=== PATIENT | male | born 1975 | race Hispanic/Latino ===

== ENCOUNTER 2016-08-08 00:33 | Emergency (ER) | payer BC ==
[2016-08-08 01:25] VITALS: BP 128/86
[2016-08-08] MEDS ORDERED: TORADOL IV ONE (01:55)
== END 2016-08-08 02:00 | disposition left against medical advice (07) ==
LOC: ED 00:33
DX: R10.9 Unspecified abdominal pain (principal); Z53.21 Procedure and treatment not carried out due to patient leaving prior to being seen by health care provider

== ENCOUNTER 2016-10-19 04:08 | Emergency (ER) | payer BC ==
[2016-10-19 06:47] LABS: Bacteria,Urine 1+ /HPF (Negative); Bilirubin,Urine NEG (Negative); Blood,Urine LG (Negative); Ketones,Urine NEG (Negative); Leukocyte Esterase,Urine TR (Negative); Nitrite,Urine NEG (Negative); Protein,Urine <15 mg/dL mg/dL (Negative); Urobilinogen,Urine < 2.0 mg/dL (<2.0)
[2016-10-19] MEDS ORDERED: NACL 0.9% 1000 ML 1,000 ML IV ONE (09:30)
[2016-10-19] MEDS ORDERED: DILAUDID IV ONE ×2 (09:30→09:51)
[2016-10-19] MEDS ORDERED: ZOFRAN IV ONE (09:30)
--- NOTE | 2016-10-19 09:52 | Emergency Department Report ---
ED General Adult HPI - General Chief complaint: Abdominal Pain Stated complaint: ABD/BACK PAIN/POSS KIDNEY STONES Time Seen by Provider: 10/19/16 09:30 Source: patient Mode of arrival: Ambulatory Limitations: No Limitations - History of Present Illness Initial comments: This is a 41-year-old male. He is previously unknown to me. His urology specialist is [facility]. He has a past medical history of multiple kidney stones. The patient presents to the ER with left flank pain radiating down to the left lower quadrant. It is sharp, positive nausea, no fevers, no chills. No irritative or obstructive urinary symptoms. No chest pain or shortness of breath. Patient reports that his urine is "dark colored." Basis is consistent with previous episodes of renal colic. The pain has no exacerbating or relieving factors. -: Gradual Location: back Radiation: abdomen, flank Severity scale (0 -10): 10 Quality: aching Consistency: constant Improves with: none Worsens with: none Associated Symptoms: nausea/vomiting. denies: chest pain, cough, diaphoresis - Related Data Previous Rx's Medication Instructions Recorded Last Taken Type Cefpodoxime Proxetil 100 mg PO Q12HR #20 tablet 10/19/16 Unknown Rx Ondansetron [Zofran Odt] 4 mg PO QID PRN #20 tab.rapdis 10/19/16 Unknown Rx oxyCODONE [Roxicodone] 5 mg PO Q6HR PRN #15 tablet 10/19/16 Unknown Rx Allergies Allergy/AdvReac Type Severity Reaction Status Date / Time Neuromuscular Blockers, Allergy Rash Verified 06/26/14 01:39 Steroidal [Steroidal Neuromuscular Blockers] NSAIDS (Non-Steroidal Allergy Hives Verified 06/26/14 01:38 Anti-Inflamma ED Review of Systems ROS: Stated complaint: ABD/BACK PAIN/POSS KIDNEY STONES Other details as noted in HPI ED Past Medical Hx - Past Medical History Previous Medical History?: Yes Hx Diabetes: Yes (diet controlled) Hx Kidney Stones: Yes - Surgical History Past Surgical History?: Yes Hx Cholecystectomy: Yes Additional Surgical History: Gallbladder removed. - Social History Smoking Status: Never Smoker Substance Use Type: None - Medications Home Medications: Home Medications Medication Instructions Recorded Confirmed Last Taken Type Cefpodoxime Proxetil 100 mg PO Q12HR #20 tablet 10/19/16 Unknown Rx Ondansetron [Zofran Odt] 4 mg PO QID PRN #20 tab.rapdis 10/19/16 Unknown Rx oxyCODONE [Roxicodone] 5 mg PO Q6HR PRN #15 tablet 10/19/16 Unknown Rx ED Physical Exam - General Limitations: No Limitations General appearance: alert, in no apparent distress - Head Head exam: Present: atraumatic, normocephalic - Eye Eye exam: Present: normal appearance, EOMI. Absent: nystagmus - ENT ENT exam: Present: normal exam, normal orophraynx, mucous membranes moist, normal external ear exam - Neck Neck exam: Present: normal inspection, full ROM. Absent: tenderness, meningismus - Respiratory Respiratory exam: Present: normal lung sounds bilaterally. Absent: respiratory distress, wheezes, rales, rhonchi, stridor, chest wall tenderness, accessory muscle use, decreased breath sounds, prolonged expiratory - Cardiovascular Cardiovascular Exam: Present: regular rate, normal rhythm, normal heart sounds. Absent: bradycardia, tachycardia, irregular rhythm, systolic murmur, diastolic murmur, rubs, gallop - GI/Abdominal GI/Abdominal exam: Present: soft, normal bowel sounds. Absent: distended, tenderness, guarding, rebound, rigid, pulsatile mass - Rectal Rectal exam: Present: deferred - Extremities Exam Extremities exam: Present: normal inspection, full ROM, normal capillary refill. Absent: pedal edema, joint swelling, calf tenderness - Back Exam Back exam: Present: normal inspection, full ROM, CVA tenderness (L). Absent: tenderness, CVA tenderness (R), muscle spasm, paraspinal tenderness, vertebral tenderness - Neurological Exam Neurological exam: Present: alert, oriented X3, normal gait, other (Extraocular movements intact. Tongue midline. No facial droop. Facial sensation intact to light touch in the V1, V2, V3 distribution bilaterally. 5 and 5 strength in 4 extremities.. Sensation is intact to light touch in 4 extremities.). Absent : motor sensory deficit - Psychiatric Psychiatric exam: Present: normal affect, normal mood - Skin Skin exam: Present: warm, dry, intact, normal color. Absent: rash ED Course Vital Signs 10/19/16 10/19/16 10/19/16 04:17 09:08 09:45 Temperature 98.0 F 98.4 F Pulse Rate 102 H 91 H 96 H Respiratory 18 18 16 Rate Blood Pressure 131/88 Blood Pressure 142/87 134/97 [Left] O2 Sat by Pulse 96 100 100 Oximetry 10/19/16 10/19/16 10:06 10:50 Temperature 98.4 F Pulse Rate 90 99 H Respiratory 16 18 Rate Blood Pressure Blood Pressure 134/101 126/77 [Left] O2 Sat by Pulse 100 96 Oximetry - Reevaluation(s) Reevaluation #1: 10/19/16 11:42 Differential diagnosis: Renal colic, infected kidney stone, pyelonephritis Assessment and plan: 41-year-old male with left flank pain, urinalysis with 84 white blood cells, 58 RBCs, 1+ bacteria, left-sided CVA tenderness. I clinically suspect that the patient most likely has an acute episode of renal colic. He was treated aggressively with multiple episodes of hydromorphone and IV fluids. While in the emergency department he became flushed, but had no fever or chills. His pain improved from a "10" to a "5." The patient's declines a CT scan out of concern for radiation. The patient did improve clinically, but continued to remain flushed. I recommended a CT scan to exclude obstructing stone, and possible concomitant urinary tract infection. The patient is now refusing a CT scan. The patient is going to sign out AGAINST MEDICAL ADVICE. The patient is alert and oriented 3. He exhibits decision-making capacity. He is free from distracting injury. The risks of leaving including , disability, paralysis, loss of quality of life are reviewed with the patient. He verbalizes understanding. He is instructed that he can return to the ER right away if when he changes his mind, or to follow up as soon as possible with his urology specialist. The conversation was witnessed by nurse Jen Antonio The patient is going to be loaded empirically with ceftriaxone, and discharged for cefpodoxime. ED Medical Decision Making - Lab Data Result diagrams: 10/19/16 10:04 10/19/16 10:04 Vital Signs 10/19/16 10/19/16 10/19/16: 09:08 09:45 Temperature 98.0 F 98.4 F Pulse Rate 102 H 91 H 96 H Respiratory 18 18 16 Rate Blood Pressure 131/88 Blood Pressure 142/87 134/97 [Left] O2 Sat by Pulse 96 100 100 Oximetry 10/19/16 10/19/16 10:06 10:50 Temperature 98.4 F Pulse Rate 90 99 H Respiratory 16 18 Rate Blood Pressure Blood Pressure 134/101 126/77 [Left] O2 Sat by Pulse 100 96 Oximetry Lab Results 10/19/16 10/19/16 10/19/16 Range/Units 06:10 10:04 10:04 WBC 7.2 (4.5-11.0) K/mm3 RBC 4.91 (3.65-5.03) M/mm3 Hgb 14.8 (11.8-15.2) gm/dl Hct 43.2 (35.5-45.6) % MCV 88 (84-94) fl MCH 30 (28-32) pg MCHC 34 (32-34) % RDW 13.1 L (13.2-15.2) % Plt Count 246 (140-440) K/mm3 Sodium 135 L (137-145) mmol/L Potassium 3.8 (3.6-5.0) mmol/L Chloride 101.1 (98-107) mmol/L Carbon Dioxide 20 L (22-30) mmol/L Anion Gap 18 mmol/L BUN 13 (9-20) mg/dL Creatinine 0.6 L (0.8-1.5) mg/dL Estimated GFR > 60 ml/min BUN/Creatinine Ratio 21.66 % Glucose 238 H (75-100) mg/dL Calcium 8.6 (8.4-10.2) mg/dL Total Creatine Kinase 109 (55-170) units/L Urine Color Straw (Yellow) Urine Turbidity Clear (Clear) Urine pH 5.0 (5.0-7.0) Ur Specific [place] 1.024 (1.003-1.030) Urine Protein <15 mg/dl (Negative) mg/dL Urine Glucose (UA) >=500 (Negative) mg/dL Urine Ketones Neg (Negative) mg/dL Urine Blood Lg (Negative) Urine Nitrite Neg (Negative) Urine Bilirubin Neg (Negative) Urine Urobilinogen < 2.0 (<2.0) mg/dL Ur Leukocyte Esterase Tr (Negative) Urine WBC (Auto) 84.0 H (0.0-6.0) /HPF Urine RBC (Auto) 58.0 (0.0-6.0) /HPF U Epithel Cells (Auto) < 1.0 (0-13.0) /HPF Urine Bacteria (Auto) 1+ (Negative) /HPF - Radiology Data Radiology results: report reviewed, image reviewed renal renal ultrasound demonstrates no acute disease Critical care attestation.: If time is entered above; I have spent that time in minutes in the direct care of this critically ill patient, excluding procedure time. ED Disposition Clinical Impression: Flank pain Disposition: LEFT AGAINST MEDICAL ADVICE Is pt being admited?: No Does the pt Need Aspirin: No Condition: Stable Instructions: Renal Colic (ED) Additional Instructions: As we discussed, you have left the hospital/emergency room AGAINST MEDICAL ADVICE. By leaving, you risked , disability, paralysis, permanent loss of quality of life. The ER is open 24 hours a day, 7 days a week. It never closes. Please return to the emergency room right away if and when you change your mind. If you decide not to return to the emergency room, please follow-up with the listed physician referrals as soon as possible. Take the pain medication, nausea medication, antibiotic therapies as directed. Cultures were sent today, results to be available next 3-5 days. Have your urologist processed her primary care doctor contact the medical records department to obtain culture results. Referrals: AMARILIS PAUL MD [Primary Care Provider] - 3-5 Days GABRIELA PATTERSON MD [Staff Physician] - 3-5 Days
[2016-10-19 10:19] LABS: Hematocrit 43.2 % (35.5-45.6); Hemoglobin 14.8 gm/dl (11.8-15.2); Mean Corpuscular HGB Conc 34 % (32-34); Mean Corpuscular Hemoglobin 30 pg (28-32); Mean Corpuscular Volume 88 fl (84-94); Platelet Count 246 K/mm3 (140-440); Red Blood Count 4.91 M/mm3 (3.65-5.03); Red Cell Distribution Width 13.1 % (13.2-15.2); White Blood Count 7.2 K/mm3 (4.5-11.0)
[2016-10-19 10:43] LABS: Anion Gap 18 mmol/L; BUN/Creatinine Ratio 21.66; Blood Urea Nitrogen 13 mg/dL (9-20); Calcium 8.6 mg/dL (8.4-10.2); Carbon Dioxide 20 mmol/L (22-30); Chloride 101.1 mmol/L (98-107); Creatine Kinase 109 units/L (55-170); Glucose 238 mg/dL (75-100); Potassium 3.8 mmol/L (3.6-5.0); Sodium 135 mmol/L (137-145)
--- NOTE | 2016-10-19 11:02 | Ultrasound Report ---
Renal ultrasound. History: Left flank pain. Findings: The right kidney measures 12.0 x 5.5 x 5.6 cm. The left kidney measures 11.6 x 5.8 x 6.3 cm. There is no evidence of mass or hydronephrosis. The cortical thickness is normal. Images of the urinary bladder reveal no significant findings. Impression: Normal study.
[2016-10-19] MEDS ORDERED: MORPHINE IV ONE (11:40)
[2016-10-19] MEDS ORDERED: ROCEPHIN/NS 1 GM/50 ML 1 GM/50 ML BAG IV ONE (11:40)
[2016-10-19 12:03] VITALS: BP 134/77
== END 2016-10-19 12:31 | disposition left against medical advice (07) ==
LOC: ED 04:08
DX: R10.9 Unspecified abdominal pain (principal); E11.9 Type 2 diabetes mellitus without complications; Z90.49 Acquired absence of other specified parts of digestive tract; Z88.6 Allergy status to analgesic agent
CPT/HCPCS: 36415; 76770; 80048; 81001; 82550; 85027; 87086; 96361; 96365; 96375; 99284; J0696; J1170; J2270; J2405; J7030

== ENCOUNTER 2016-11-06 01:30 | Emergency (ER) | payer BC ==
[2016-11-06 01:39] VITALS: BP 136/95
== END 2016-11-06 02:58 | disposition left against medical advice (07) ==
LOC: ED 01:30
DX: R10.9 Unspecified abdominal pain (principal); Z53.21 Procedure and treatment not carried out due to patient leaving prior to being seen by health care provider

== ENCOUNTER 2016-12-14 00:44 | Emergency (ER) | payer BC ==
[2016-12-14 01:27] LABS: Bacteria,Urine 1+ /HPF (Negative); Bilirubin,Urine NEG (Negative); Blood,Urine LG (Negative); Ketones,Urine NEG (Negative); Leukocyte Esterase,Urine MOD (Negative); Nitrite,Urine NEG (Negative); Protein,Urine <15 mg/dL mg/dL (Negative); Urobilinogen,Urine < 2.0 mg/dL (<2.0)
[2016-12-14] MEDS ORDERED: NACL 0.9% 1000 ML 1,000 ML IV ONE (09:28)
[2016-12-14] MEDS ORDERED: MORPHINE IV ONE (09:29)
[2016-12-14] MEDS ORDERED: DILAUDID IV ONE ×3 (09:35→12:52)
[2016-12-14] MEDS ORDERED: ZOFRAN ONE (10:18)
--- NOTE | 2016-12-14 10:30 | Ultrasound Report ---
ULTRASOUND RENAL INDICATION: Pain. COMPARISON: 10/19/2016. FINDINGS: Renal sonography demonstrates normal renal cortical echogenicity. Grossly preserved renal contours. No hydronephrosis. Echogenic imaged liver. RIGHT KIDNEY measures 12.3 x 6 x 6.2 cm with cortical thickness of 1.6 cm. Approximately 1.5 x 1 cm cortical cyst superiorly, image 13. LEFT KIDNEY estimated at 12 x 6 x 6.1 cm with cortical thickness of 2 cm. URINARY BLADDER suboptimally distended and assessed, though grossly unremarkable in so far seen. CONCLUSION: No acute renal sonographic abnormality with small right renal cyst and fatty liver, as described in this patient with tiny 1-2 mm nonobstructing bilateral renal calculi known by prior CT. Thank you for the opportunity to participate in this patient's care.
--- NOTE | 2016-12-14 11:27 | Emergency Department Report ---
ED General Adult HPI - General Chief complaint: Abdominal Pain Stated complaint: POSS KIDNEY STONE Time Seen by Provider: 12/14/16 11:10 Source: patient, RN notes reviewed, old records reviewed Mode of arrival: Ambulatory Limitations: No Limitations - History of Present Illness Initial comments: This is a 42-year-old male. I have evaluated him in the past. Primary care Dr.: Dr. Dawson Urology: [facility] Past medical history: Nephrolithiasis, "kidney cysts." The patient presented to the ER today with his typical complaint of renal colic. It started last night. It started in the flank, and radiated down to his right lower quadrant. The patient describes bloody urine. There is no testicular pain. Patient denies fevers and chills. Denies irritated obstructive urinary symptoms. The patient initially reports that his pain was an 8 out of 10. The patient is given multiple doses of hydromorphone in the ER. His pain is now 3 out of 10. He had nausea, this has since resolved. There is no vomiting. His urinalysis was equivocal for urinary tract infection, occult was negative in September. I had an extensive discussion with the patient. Given his urinalysis, and his symptoms, he agreed to a noncontrast CT scan of the abdomen and pelvis to exclude significant obstructing stone. -: Gradual Location: abdomen, pelvis Severity scale (0 -10): 10 Consistency: constant Improves with: medication Worsens with: none Associated Symptoms: nausea/vomiting. denies: fever/chills, weakness - Related Data Previous Rx's Medication Instructions Recorded Last Taken Type Cefpodoxime Proxetil 100 mg PO Q12HR #20 tablet 10/19/16 Unknown Rx Ondansetron [Zofran Odt] 4 mg PO QID PRN #20 tab.rapdis 10/19/16 Unknown Rx oxyCODONE [Roxicodone] 5 mg PO Q6HR PRN #15 tablet 10/19/16 Unknown Rx Nitrofurantoin [place]/M-Cryst 100 mg PO Q12HR #14 capsule 12/14/16 Unknown Rx [Macrobid CAP] Ondansetron [Zofran Odt] 4 mg PO QID PRN #20 tab.rapdis 12/14/16 Unknown Rx oxyCODONE [Roxicodone] 5 mg PO Q6HR PRN #15 tablet 12/14/16 Unknown Rx Allergies Allergy/AdvReac Type Severity Reaction Status Date / Time Neuromuscular Blockers, Allergy Rash Verified 06/26/14 01:39 Steroidal [Steroidal Neuromuscular Blockers] NSAIDS (Non-Steroidal Allergy Hives Verified 06/26/14 01:38 Anti-Inflamma prednisone Allergy Unknown Verified 11/06/16 01:39 steriods Allergy Unknown Uncoded 11/06/16 01:40 ED Review of Systems ROS: Stated complaint: POSS KIDNEY STONE Other details as noted in HPI Constitutional: denies: fever, malaise Eyes: denies: vision change ENT: denies: epistaxis Respiratory: denies: cough Cardiovascular: denies: chest pain Gastrointestinal: abdominal pain, nausea Genitourinary: hematuria. denies: urgency, dysuria, frequency, testicular pain , testicular mass Musculoskeletal: back pain Skin: denies: lesions Neurological: denies: headache Psychiatric: anxiety. denies: as per HPI ED Past Medical Hx - Past Medical History Previous Medical History?: Yes Hx Diabetes: Yes (diet controlled) Hx Kidney Stones: Yes - Surgical History Past Surgical History?: Yes Hx Cholecystectomy: Yes Additional Surgical History: Gallbladder removed. - Social History Smoking Status: Never Smoker Substance Use Type: None - Medications Home Medications: Home Medications Medication Instructions Recorded Confirmed Last Taken Type Cefpodoxime Proxetil 100 mg PO Q12HR #20 tablet 10/19/16 Unknown Rx Ondansetron [Zofran Odt] 4 mg PO QID PRN #20 tab.rapdis 10/19/16 Unknown Rx oxyCODONE [Roxicodone] 5 mg PO Q6HR PRN #15 tablet 10/19/16 Unknown Rx Nitrofurantoin [place]/M-Cryst 100 mg PO Q12HR #14 capsule 12/14/16 Unknown Rx [Macrobid CAP] Ondansetron [Zofran Odt] 4 mg PO QID PRN #20 tab.rapdis 12/14/16 Unknown Rx oxyCODONE [Roxicodone] 5 mg PO Q6HR PRN #15 tablet 12/14/16 Unknown Rx ED Physical Exam - General Limitations: No Limitations General appearance: alert, in no apparent distress - Head Head exam: Present: atraumatic, normocephalic - Eye Eye exam: Present: normal appearance, EOMI. Absent: nystagmus - ENT ENT exam: Present: normal exam, normal orophraynx, mucous membranes moist, normal external ear exam - Neck Neck exam: Present: normal inspection, full ROM. Absent: tenderness, meningismus - Respiratory Respiratory exam: Present: normal lung sounds bilaterally. Absent: respiratory distress, wheezes, rales, rhonchi, stridor, chest wall tenderness, accessory muscle use, decreased breath sounds, prolonged expiratory - Cardiovascular Cardiovascular Exam: Present: regular rate, normal rhythm, normal heart sounds. Absent: bradycardia, tachycardia, systolic murmur, diastolic murmur, rubs, gallop - GI/Abdominal GI/Abdominal exam: Present: soft, normal bowel sounds. Absent: distended, tenderness, guarding, rebound, rigid, pulsatile mass - Rectal Rectal exam: Present: deferred - exam: Present: other (I recommended the testicular examination to the patient , however he refused) - Extremities Exam Extremities exam: Present: normal inspection, full ROM, normal capillary refill. Absent: tenderness, pedal edema, joint swelling, calf tenderness - Back Exam Back exam: Present: normal inspection, full ROM. Absent: tenderness, CVA tenderness (R), CVA tenderness (L), muscle spasm, paraspinal tenderness, vertebral tenderness - Neurological Exam Neurological exam: Present: alert, oriented X3, normal gait, other (Extraocular movements intact. Tongue midline. No facial droop. Facial sensation intact to light touch in the V1, V2, V3 distribution bilaterally. 5 and 5 strength in 4 extremities.. Sensation is intact to light touch in 4 extremities.). Absent : motor sensory deficit - Psychiatric Psychiatric exam: Present: normal affect, normal mood - Skin Skin exam: Present: warm, dry, intact, normal color. Absent: rash ED Course Vital Signs 12/14/16 12/14/16 12/14/16 00:49 10:00 10:38 Temperature 98.7 F Pulse Rate 107 H 89 Respiratory 18 20 20 Rate Blood Pressure 158/99 Blood Pressure 148/89 [Right] O2 Sat by Pulse 98 100 Oximetry 12/14/16 14:11 Temperature Pulse Rate 82 Respiratory 16 Rate Blood Pressure Blood Pressure 138/62 [Right] O2 Sat by Pulse 99 Oximetry - Reevaluation(s) Reevaluation #1: 12/14/16 12:41 Differential diagnosis: Renal colic, urinary tract infection Assessment and plan: 41-year-old male with typical episode of renal colic. He is afebrile with slight hypertension but otherwise reassuring vital signs. He declined a testicular examination. His urinalysis today demonstrates leukocytes, large blood, 1+ bacteria with 25 RBCs. He denies irritative and obstructive urinary symptoms. He had a similar presentation back in September when I previously examined him. At that time, a culture was negative. The patient is agreeable to a CT scan at this time to exclude obstructing stone. He is alert and oriented 3, and we are able to make a shared decision while discussing the risks, and benefits. CT scan has been performed, interpretation is pending. Reevaluation #2: 12/14/16 13:46 Patient requesting to go. CT scan demonstrates bilateral nephrolithiasis within the calyeces However, then there were no ureteral stones. The patient is afebrile, tolerating liquid feeds, and requesting to leave. He will be discharged with pain medication, nausea medication, antibiotics. He is instructed to follow up with outpatient urology. Return precautions are reviewed. Given lack of CVA tenderness, lack of fever, benign physical examination, I don't believe the patient's clinical presentation is consistent with pyelonephritis at this time. There is no right lower quadrant tenderness at this time. The appendix is normal. The patient had a similar presentation in September. Therefore I think appendicitis is very unlikely. 12/14/16 15:05 ED Medical Decision Making - Lab Data Result diagrams: 12/14/16 11:37 Vital Signs 12/14/16 12/14/16 12/14/16 00:49 10:00 10:38 Temperature 98.7 F Pulse Rate 107 H 89 Respiratory 18 20 20 Rate Blood Pressure 158/99 Blood Pressure 148/89 [Right] O2 Sat by Pulse 98 100 Oximetry Lab Results 12/14/16 12/14/16 12/14/16 Range/Units 01:06 11:37 11:37 Sodium 137 (137-145) mmol/L Potassium 3.9 (3.6-5.0) mmol/L Chloride 100.4 (98-107) mmol/L Carbon Dioxide 21 L (22-30) mmol/L Anion Gap 20 mmol/L BUN 12 (9-20) mg/dL Creatinine 0.8 (0.8-1.5) mg/dL Estimated GFR > 60 ml/min BUN/Creatinine Ratio 15.00 % Glucose 250 H (75-100) mg/dL Calcium 8.4 (8.4-10.2) mg/dL Total Creatine Kinase 121 (55-170) units/L Urine Color Red (Yellow) Urine Turbidity Clear (Clear) Urine pH 5.0 (5.0-7.0) Ur Specific [place] 1.017 (1.003-1.030) Urine Protein <15 mg/dl (Negative) mg/dL Urine Glucose (UA) >=500 (Negative) mg/dL Urine Ketones Neg (Negative) mg/dL Urine Blood Lg (Negative) Urine Nitrite Neg (Negative) Urine Bilirubin Neg (Negative) Urine Urobilinogen < 2.0 (<2.0) mg/dL Ur Leukocyte Esterase Mod (Negative) Urine WBC (Auto) 89.0 H (0.0-6.0) /HPF Urine RBC (Auto) 25.0 (0.0-6.0) /HPF U Epithel Cells (Auto) 4.0 (0-13.0) /HPF Urine Bacteria (Auto) 1+ (Negative) /HPF - Radiology Data Radiology results: report reviewed, image reviewed Noncontrast CT scan of the abdomen and pelvis: Kidney ultrasound: No acute renal sonographic abnormality, small right renal cysts which are chronic as per patient tiny 1-2 mm nonobstructing bilateral renal calculi, seen on prior CT. Noncontrast CT scan of the abdomen/pelvis: There is a 4 mm calyceal stone noted in the right mid kidney. This is new since previous examination. There is a 2 mm calyceal stone noted in the inferior pole of the right kidney which is unchanged. No ureteral stones or hydronephrosis noted. Normal cardiac size. Critical care attestation.: If time is entered above; I have spent that time in minutes in the direct care of this critically ill patient, excluding procedure time. ED Disposition Clinical Impression: Flank pain Disposition: DC-01 TO HOME OR SELFCARE Is pt being admited?: No Does the pt Need Aspirin: No Condition: Stable Instructions: Flank Pain (ED) Additional Instructions: The pain medication, nausea medication, antibiotics as directed. Cultures were sent today. Results will be available in the next 3-5 days. Have a primary care doctor or urology specialist contact the medical records department to obtain culture results. Return to the ER right away with new pain, worsened pain, migration of pain, intractable nausea or vomiting, inability to tolerate liquid feeds, confusion, change in mental status, projectile vomiting. Prescriptions: Nitrofurantoin [place]/M-Cryst [Macrobid CAP] 100 mg PO Q12HR #14 capsule Ondansetron [Zofran Odt] 4 mg PO QID PRN #20 tab.rapdis PRN Reason: Nausea oxyCODONE [Roxicodone] 5 mg PO Q6HR PRN #15 tablet PRN Reason: Pain Referrals: JIAN DAWSON MD [Primary Care Provider] - 3-5 Days GABRIELA PATTERSON MD [Staff Physician] - 3-5 Days
[2016-12-14 12:11] LABS: Anion Gap 20 mmol/L; Blood Urea Nitrogen 12 mg/dL (9-20); Calcium 8.4 mg/dL (8.4-10.2); Carbon Dioxide 21 mmol/L (22-30); Chloride 100.4 mmol/L (98-107); Glucose 250 mg/dL (75-100); Potassium 3.9 mmol/L (3.6-5.0); Sodium 137 mmol/L (137-145)
--- NOTE | 2016-12-14 12:56 | Cat Scan Report ---
CT OF THE ABDOMEN AND PELVIS WITHOUT CONTRAST HISTORY: Right flank pain. TECHNIQUE: Helical CT without contrast. Sagittal and coronal reformatted images. FINDINGS: Compared to 06/26/14. Both kidneys are normal size, contour and position. A 4 mm calyceal stone is identified in the mid right kidney which is new since the previous exam. A 2 mm calyceal stone is identified at the inferior pole the right kidney which is unchanged. A 2 mm calyceal stone in the mid left kidney is unchanged. No ureteral stones or hydronephrosis. No cystic disease or obvious renal mass. The bladder is collapsed and unremarkable. There is mild diffuse fatty change in the liver. No liver mass or surface nodularity. The gallbladder has been surgically removed. Normal pancreas. The spleen, adrenal glands, aorta, bowel loops and appendix are within normal limits. No evidence for ascites, adenopathy, inflammatory changes or free air. Normal heart size. Clear lung bases. No bony abnormality. IMPRESSION: Bilateral nephrolithiasis as outlined above. No ureteral stones or hydronephrosis identified.
[2016-12-14 14:12] VITALS: BP 138/62
== END 2016-12-14 14:05 | disposition home or self-care (01) ==
LOC: ED 00:44
DX: R10.31 Right lower quadrant pain (principal); E11.9 Type 2 diabetes mellitus without complications; N23 Unspecified renal colic; Z88.8 Allergy status to other drugs, medicaments and biological substances; Z88.6 Allergy status to analgesic agent
CPT/HCPCS: 36415; 74176; 76770; 80048; 81001; 82550; 87086; 96361; 96374; 96376; 99284; J1170; J2405; J7030

== ENCOUNTER 2017-02-25 22:23 | Emergency (ER) | payer BC ==
[2017-02-25 23:04] VITALS: BP 132/76
[2017-02-26] MEDS ORDERED: TORADOL IM ONE (00:53)
[2017-02-26] MEDS ORDERED: DILAUDID IM ONE (00:54)
[2017-02-26 01:09] LABS: Bilirubin,Urine NEG (Negative); Blood,Urine LG (Negative); Ketones,Urine NEG (Negative); Leukocyte Esterase,Urine MOD (Negative); Nitrite,Urine NEG (Negative); Protein,Urine <15 mg/dL mg/dL (Negative)
--- NOTE | 2017-02-26 02:45 | Emergency Department Report ---
ED General Adult HPI - General Chief complaint: Abdominal Pain Stated complaint: LT SIDE PAIN Time Seen by Provider: 02/26/17 00:48 Source: patient Mode of arrival: Ambulatory Limitations: No Limitations - History of Present Illness Initial comments: Patient is a 41-year-old male past history of renal colic who presents with severe left flank pain that has been going on for the last 2 hours. Patient states that the pain is a 10 out of 10. Radiates to his groin and he states this is the type of pain he has when he has a kidney stone. He is pacing around in the room. He also states that he has some nausea and vomiting. The vomitus nonbloody nonbilious. He denies having any fevers. - Related Data Previous Rx's Medication Instructions Recorded Last Taken Type Cefpodoxime Proxetil 100 mg PO Q12HR #20 tablet 10/19/16 Unknown Rx Ondansetron [Zofran Odt] 4 mg PO QID PRN #20 tab.rapdis 10/19/16 Unknown Rx oxyCODONE [Roxicodone] 5 mg PO Q6HR PRN #15 tablet 10/19/16 Unknown Rx Nitrofurantoin [place]/M-Cryst 100 mg PO Q12HR #14 capsule 12/14/16 Unknown Rx [Macrobid CAP] Ondansetron [Zofran Odt] 4 mg PO QID PRN #20 tab.rapdis 12/14/16 Unknown Rx oxyCODONE [Roxicodone] 5 mg PO Q6HR PRN #15 tablet 12/14/16 Unknown Rx Allergies Allergy/AdvReac Type Severity Reaction Status Date / Time Neuromuscular Blockers, Allergy Rash Verified 06/26/14 01:39 Steroidal [Steroidal Neuromuscular Blockers] NSAIDS (Non-Steroidal Allergy Hives Verified 06/26/14 01:38 Anti-Inflamma prednisone Allergy Unknown Verified 11/06/16 01:39 steriods Allergy Unknown Uncoded 11/06/16 01:40 ED Review of Systems ROS: Stated complaint: LT SIDE PAIN Other details as noted in HPI Constitutional: denies: chills, fever Eyes: denies: eye pain, eye discharge, vision change ENT: denies: ear pain, throat pain Respiratory: denies: cough, shortness of breath, wheezing Cardiovascular: denies: chest pain, palpitations Endocrine: no symptoms reported Gastrointestinal: nausea, vomiting. denies: abdominal pain, diarrhea Genitourinary: denies: urgency, dysuria Musculoskeletal: other (flank pain). denies: back pain, joint swelling, arthralgia Skin: denies: rash, lesions Neurological: denies: headache, weakness, paresthesias Psychiatric: denies: anxiety, depression Hematological/Lymphatic: denies: easy bleeding, easy bruising ED Past Medical Hx - Past Medical History Previous Medical History?: Yes Hx Diabetes: Yes (diet controlled) Hx Kidney Stones: Yes - Surgical History Hx Cholecystectomy: Yes Additional Surgical History: Gallbladder removed. - Social History Smoking Status: Never Smoker - Medications Home Medications: Home Medications Medication Instructions Recorded Confirmed Last Taken Type Cefpodoxime Proxetil 100 mg PO Q12HR #20 tablet 10/19/16 Unknown Rx Ondansetron [Zofran Odt] 4 mg PO QID PRN #20 tab.rapdis 10/19/16 Unknown Rx oxyCODONE [Roxicodone] 5 mg PO Q6HR PRN #15 tablet 10/19/16 Unknown Rx Nitrofurantoin [place]/M-Cryst 100 mg PO Q12HR #14 capsule 12/14/16 Unknown Rx [Macrobid CAP] Ondansetron [Zofran Odt] 4 mg PO QID PRN #20 tab.rapdis 12/14/16 Unknown Rx oxyCODONE [Roxicodone] 5 mg PO Q6HR PRN #15 tablet 12/14/16 Unknown Rx ED Physical Exam - General Limitations: No Limitations General appearance: alert, other (standing around in pain) - Head Head exam: Present: atraumatic, normocephalic - Eye Eye exam: Present: normal appearance - ENT ENT exam: Present: mucous membranes moist - Neck Neck exam: Present: normal inspection - Respiratory Respiratory exam: Present: normal lung sounds bilaterally. Absent: respiratory distress - Cardiovascular Cardiovascular Exam: Present: regular rate, normal rhythm. Absent: systolic murmur, diastolic murmur, rubs, gallop - GI/Abdominal GI/Abdominal exam: Present: soft, normal bowel sounds - Rectal Rectal exam: Present: deferred - Extremities Exam Extremities exam: Present: normal inspection - Back Exam Back exam: Present: normal inspection, CVA tenderness (L) - Neurological Exam Neurological exam: Present: alert, oriented X3 - Psychiatric Psychiatric exam: Present: normal affect, normal mood - Skin Skin exam: Present: warm, dry, intact, normal color. Absent: rash ED Course Vital Signs 02/25/17 22:42 Temperature 98.4 F Pulse Rate 96 H Respiratory 20 Rate Blood Pressure 132/76 O2 Sat by Pulse 96 Oximetry - Reevaluation(s) Reevaluation #1: 02/26/17 02:48 Patient eloped from the emergency department patient has not gotten his CT scan. He left before being reassessed. ED Medical Decision Making - Lab Data Lab Results 02/26/17 Range/Units 00:48 Urine Color Straw (Yellow) Urine Turbidity Clear (Clear) Urine pH 7.0 (5.0-7.0) Ur Specific [place] 1.028 (1.003-1.030) Urine Protein <15 mg/dl (Negative) mg/dL Urine Glucose (UA) >=500 (Negative) mg/dL Urine Ketones Neg (Negative) mg/dL Urine Blood Lg (Negative) Urine Nitrite Neg (Negative) Urine Bilirubin Neg (Negative) Urine Urobilinogen 2.0 (<2.0) mg/dL Ur Leukocyte Esterase Mod (Negative) Urine WBC (Auto) 27.0 H (0.0-6.0) /HPF Urine RBC (Auto) 28.0 (0.0-6.0) /HPF U Epithel Cells (Auto) 1.0 (0-13.0) /HPF - Radiology Data Radiology results: pending - Medical Decision Making Chief medical diagnosis: Left kidney stone Differential medical diagnosis: Urinary tract infection, pyelonephritis I will get CT noncontrast IM analgesic pain medication, urinalysis and antiemetic medication medication Patient is refusing IV sticks at this time and he is upset about his weight in the emergency department. Critical care attestation.: If time is entered above; I have spent that time in minutes in the direct care of this critically ill patient, excluding procedure time. ED Disposition Clinical Impression: Left flank pain, Renal colic on left side Disposition: Z- ELOPED Is pt being admited?: No Does the pt Need Aspirin: No Condition: Undetermined Referrals: PRIMARY CARE, [Primary Care Provider] - 3-5 Days
== END 2017-02-26 01:38 | disposition left against medical advice (07) ==
LOC: ED 22:23
DX: N23 Unspecified renal colic (principal); E11.9 Type 2 diabetes mellitus without complications; Z88.8 Allergy status to other drugs, medicaments and biological substances
CPT/HCPCS: 81001; 99283

== ENCOUNTER 2017-05-15 22:55 | Emergency (ER) | payer BC | END 2017-05-16 03:34 | disposition left against medical advice (07) | LOC: ED 22:55 | DX: N20.0 Calculus of kidney (principal); Z53.21 Procedure and treatment not carried out due to patient leaving prior to being seen by health care provider ==

== ENCOUNTER 2017-06-12 14:39 | Emergency (ER) | payer BC | END 2017-06-12 14:45 | disposition left against medical advice (07) | LOC: ED 14:39 | DX: R10.9 Unspecified abdominal pain (principal); Z53.21 Procedure and treatment not carried out due to patient leaving prior to being seen by health care provider ==

== ENCOUNTER 2017-10-05 21:43 | Emergency (ER) | payer BC ==
[2017-10-05] MEDS ORDERED: ZOFRAN IV ONE (23:26)
[2017-10-05] MEDS ORDERED: MORPHINE IV ONE (23:26)
[2017-10-05] MEDS ORDERED: NACL 0.9% 1000 ML 1,000 ML IV ONE (23:26)
[2017-10-06 00:06] VITALS: BP 133/86
[2017-10-06 00:07] LABS: Basophils % (Auto) 0.2 % (0.0-1.8); Eosinophils # (Auto) 0.3 K/mm3 (0.0-0.4); Eosinophils % (Auto) 3.6 % (0.0-4.3); Hematocrit 43.5 % (35.5-45.6); Hemoglobin 15.1 gm/dl (11.8-15.2); Lymphocytes # (Auto) 3.1 K/mm3 (1.2-5.4); Lymphocytes % (Auto) 32.4 % (13.4-35.0); Mean Corpuscular HGB Conc 35 % (32-34); Mean Corpuscular Hemoglobin 31 pg (28-32); Mean Corpuscular Volume 88 fl (84-94); Monocytes # (Auto) 0.6 K/mm3 (0.0-0.8); Monocytes % (Auto) 6.7 % (0.0-7.3); Platelet Count 282 K/mm3 (140-440); Red Blood Count 4.96 M/mm3 (3.65-5.03); Red Cell Distribution Width 13.3 % (13.2-15.2)
[2017-10-06 00:25] LABS: Alanine Aminotransferase 37 units/L (7-56); Albumin 3.9 g/dL (3.9-5); BUN/Creatinine Ratio 16; Blood Urea Nitrogen 13 mg/dL (9-20); Calcium 8.7 mg/dL (8.4-10.2); Hemolysis Index 11
[2017-10-06 00:51] LABS: Bilirubin,Urine NEG (Negative); Blood,Urine MOD (Negative); Color,Urine Yellow (Yellow); Mucus,Urine FEW /HPF; Protein,Urine <15 mg/dL mg/dL (Negative); Urobilinogen,Urine < 2.0 mg/dL (<2.0)
--- NOTE | 2017-10-06 01:24 | Emergency Department Report ---
ED Abdominal Pain HPI - General Chief Complaint: Back Pain/Injury Stated Complaint: LT SIDE PAIN Time Seen by Provider: 10/05/17 23:14 Source: patient Mode of arrival: Ambulatory Limitations: No Limitations - History of Present Illness Initial Comments: Patient is a 42-year-old male with a past medical history of multiple kidney stones who states 2-3 hours ago he started having some left-sided abdominal pain and flank pain. Patient states his urine has been dark for the past several hours and has been nauseous as well. Patient states the pain is 10 out of 10 in severity. There is radiation of his pain to the groin. Patient states he usually has kidney stones that pass and is able to tough it out but states he was hurting pretty bad this evening. Severity scale (0 -10): 9 Quality: stabbing Consistency: constant Associated Symptoms: nausea. denies: vomiting, diarrhea, fever, chills, constipation, dysuria, hematemesis, hematochezia, melena, hematuria, anorexia, syncope - Related Data Previous Rx's Medication Instructions Recorded Last Taken Type Cefpodoxime Proxetil 100 mg PO Q12HR #20 tablet 10/19/16 Unknown Rx Ondansetron [Zofran Odt] 4 mg PO QID PRN #20 tab.rapdis 10/19/16 Unknown Rx oxyCODONE [Roxicodone] 5 mg PO Q6HR PRN #15 tablet 10/19/16 Unknown Rx Nitrofurantoin [place]/M-Cryst 100 mg PO Q12HR #14 capsule 12/14/16 Unknown Rx [Macrobid CAP] Ondansetron [Zofran Odt] 4 mg PO QID PRN #20 tab.rapdis 12/14/16 Unknown Rx oxyCODONE [Roxicodone] 5 mg PO Q6HR PRN #15 tablet 12/14/16 Unknown Rx Allergies Allergy/AdvReac Type Severity Reaction Status Date / Time Neuromuscular Blockers, Allergy Rash Verified 06/26/14 01:39 Steroidal [Steroidal Neuromuscular Blockers] NSAIDS (Non-Steroidal Allergy Hives Verified 06/26/14 01:38 Anti-Inflamma prednisone Allergy Unknown Verified 11/06/16 01:39 steriods Allergy Unknown Uncoded 11/06/16 01:40 ED Review of Systems ROS: Stated complaint: LT SIDE PAIN Other details as noted in HPI Comment: All other systems reviewed and negative ED Past Medical Hx - Past Medical History Previous Medical History?: Yes Hx Diabetes: Yes (diet controlled) Hx Kidney Stones: Yes - Surgical History Past Surgical History?: Yes Hx Cholecystectomy: Yes Additional Surgical History: Gallbladder removed. - Social History Smoking Status: Former Smoker Substance Use Type: None - Medications Home Medications: Home Medications Medication Instructions Recorded Confirmed Last Taken Type Cefpodoxime Proxetil 100 mg PO Q12HR #20 tablet 10/19/16 Unknown Rx Ondansetron [Zofran Odt] 4 mg PO QID PRN #20 tab.rapdis 10/19/16 Unknown Rx oxyCODONE [Roxicodone] 5 mg PO Q6HR PRN #15 tablet 10/19/16 Unknown Rx Nitrofurantoin [place]/M-Cryst 100 mg PO Q12HR #14 capsule 12/14/16 Unknown Rx [Macrobid CAP] Ondansetron [Zofran Odt] 4 mg PO QID PRN #20 tab.rapdis 12/14/16 Unknown Rx oxyCODONE [Roxicodone] 5 mg PO Q6HR PRN #15 tablet 12/14/16 Unknown Rx ED Physical Exam - General Limitations: No Limitations General appearance: alert, anxious - Head Head exam: Present: atraumatic, normocephalic - Eye Eye exam: Present: normal appearance - ENT ENT exam: Present: mucous membranes moist - Neck Neck exam: Present: normal inspection - Respiratory Respiratory exam: Present: normal lung sounds bilaterally. Absent: respiratory distress - Cardiovascular Cardiovascular Exam: Present: regular rate, normal rhythm. Absent: systolic murmur, diastolic murmur, rubs, gallop - GI/Abdominal GI/Abdominal exam: Present: soft, normal bowel sounds - Rectal Rectal exam: Present: deferred - Extremities Exam Extremities exam: Present: normal inspection - Back Exam Back exam: Present: normal inspection - Neurological Exam Neurological exam: Present: alert, oriented X3 - Psychiatric Psychiatric exam: Present: normal affect, normal mood - Skin Skin exam: Present: warm, dry, intact, normal color. Absent: rash ED Course Vital Signs 10/06/17 10/06/17 00:05 00:12 Temperature 98 F Pulse Rate 103 H Respiratory 20 20 Rate Blood Pressure 133/86 [Left] ED Medical Decision Making - Lab Data Result diagrams: 10/05/17 23:50 10/05/17 23:50 Lab Results 10/05/17 10/05/17 10/05/17 Range/Units 23:50 23:50 Unknown WBC 9.5 (4.5-11.0) K/mm3 RBC 4.96 (3.65-5.03) M/mm3 Hgb 15.1 (11.8-15.2) gm/dl Hct 43.5 (35.5-45.6) % MCV 88 (84-94) fl MCH 31 (28-32) pg MCHC 35 H (32-34) % RDW 13.3 (13.2-15.2) % Plt Count 282 (140-440) K/mm3 Lymph % (Auto) 32.4 (13.4-35.0) % [place] % (Auto) 6.7 (0.0-7.3) % Eos % (Auto) 3.6 (0.0-4.3) % Baso % (Auto) 0.2 (0.0-1.8) % Lymph # 3.1 (1.2-5.4) K/mm3 [place] # 0.6 (0.0-0.8) K/mm3 Eos # 0.3 (0.0-0.4) K/mm3 Baso # 0.0 (0.0-0.1) K/mm3 Seg Neutrophils % 57.1 (40.0-70.0) % Seg Neutrophils # 5.4 (1.8-7.7) K/mm3 Sodium 139 (137-145) mmol/L Potassium 4.0 (3.6-5.0) mmol/L Chloride 97.8 L (98-107) mmol/L Carbon Dioxide 24 (22-30) mmol/L Anion Gap 21 mmol/L BUN 13 (9-20) mg/dL Creatinine 0.8 (0.8-1.5) mg/dL Estimated GFR > 60 ml/min BUN/Creatinine Ratio 16 % Glucose 177 H (75-100) mg/dL Calcium 8.7 (8.4-10.2) mg/dL Total Bilirubin 0.40 (0.1-1.2) mg/dL AST 24 (5-40) units/L ALT 37 (7-56) units/L Alkaline Phosphatase 62 (35-129) units/L Total Protein 7.7 (6.3-8.2) g/dL Albumin 3.9 (3.9-5) g/dL Albumin/Globulin Ratio 1.0 % Urine Color Yellow (Yellow) Urine Turbidity Clear (Clear) Urine pH 5.0 (5.0-7.0) Ur Specific [place] 1.018 (1.003-1.030) Urine Protein <15 mg/dl (Negative) mg/dL Urine Glucose (UA) Neg (Negative) mg/dL Urine Ketones Neg (Negative) mg/dL Urine Blood Mod (Negative) Urine Nitrite Neg (Negative) Urine Bilirubin Neg (Negative) Urine Urobilinogen < 2.0 (<2.0) mg/dL Ur Leukocyte Esterase Lg (Negative) Urine WBC (Auto) 16.0 H (0.0-6.0) /HPF Urine RBC (Auto) 4.0 (0.0-6.0) /HPF U Epithel Cells (Auto) 3.0 (0-13.0) /HPF Urine Mucus Few /HPF - Medical Decision Making Patient during his stay stated that he was too uncomfortable to go to CT. Patient did receive Toradol morphine Zofran and IV fluids. At 1:15 patient stated that he thinks he may have passed a stone and feels much better and would like to go home. Patient does not want a CT scan is refused it. Patient was to be sent home at this time with Ultram and Zofran and Cipro but the patient stated that he did not want to wait and was unhappy with his care. he signed ama paper dispite me stating that we were going to treat the patient Critical care attestation.: If time is entered above; I have spent that time in minutes in the direct care of this critically ill patient, excluding procedure time. ED Disposition Clinical Impression: Renal colic UTI (urinary tract infection) Qualifiers: Urinary tract infection type: acute cystitis Hematuria presence: with hematuria Qualified Code(s): N30.01 - Acute cystitis with hematuria Disposition: LEFT AGAINST MED ADVICE Is pt being admited?: No Does the pt Need Aspirin: No Condition: Stable Instructions: Urinary Tract Infection in Men (ED) Referrals: KACI ALAS MD [Primary Care Provider] - 3-5 Days
== END 2017-10-06 02:26 | disposition left against medical advice (07) ==
LOC: ED 21:43
DX: N30.01 Acute cystitis with hematuria (principal); N23 Unspecified renal colic; E11.9 Type 2 diabetes mellitus without complications
CPT/HCPCS: 36415; 80053; 81001; 85025; 96361; 96374; 96375; 99283; J2270; J2405; J7030

== ENCOUNTER → 2017-11-19 00:43 | Emergency (ER) | payer BC | END | disposition left against medical advice (07) | LOC: ED 00:43 | DX: R10.9 Unspecified abdominal pain (principal); Z53.21 Procedure and treatment not carried out due to patient leaving prior to being seen by health care provider ==

== ENCOUNTER 2018-02-02 18:57 | Emergency (ER) | payer BC ==
[2018-02-02 19:37] VITALS: BP 138/85
[2018-02-02] MEDS ORDERED: TORADOL IV ONE (19:54)
[2018-02-02] MEDS ORDERED: ZOFRAN IV ONE ×2 (19:54→22:38)
[2018-02-02] MEDS ORDERED: DILAUDID IV ONE (22:38)
[2018-02-02] MEDS ORDERED: NACL 0.9% 1000 ML 1,000 ML IV ONE (22:38)
[2018-02-02 22:39] LABS: Bilirubin,Urine NEG (Negative); Blood,Urine MOD (Negative); Color,Urine Yellow (Yellow); Mucus,Urine FEW /HPF; Protein,Urine <15 mg/dL mg/dL (Negative); Urobilinogen,Urine < 2.0 mg/dL (<2.0)
[2018-02-02] MEDS ORDERED: ROCEPHIN/NS 1 GM/50 ML 1 GM/50 ML BAG IV ONE (23:23)
[2018-02-02] MEDS ORDERED: CEPACOL X STRENGTH MM PRN (23:25)
[2018-02-02 23:34] LABS: Mean Corpuscular HGB Conc 36 % (32-34); Mean Corpuscular Hemoglobin 31 pg (28-32); Mean Corpuscular Volume 87 fl (84-94); Platelet Count 332 K/mm3 (140-440); Red Cell Distribution Width 13.2 % (13.2-15.2)
[2018-02-02 23:54] LABS: Hematocrit 45.2 % (35.5-45.6); Hemoglobin 16.1 gm/dl (11.8-15.2)
[2018-02-02 23:57] LABS: BUN/Creatinine Ratio 14; Blood Urea Nitrogen 11 mg/dL (9-20); Calcium 9.2 mg/dL (8.4-10.2); Hemolysis Index 102
--- NOTE | 2018-02-03 00:15 | Emergency Department Report ---
ED Abdominal Pain HPI - General Chief Complaint: Urogenital-Male Stated Complaint: PAINFUL URINATION Time Seen by Provider: 02/02/18 22:31 Source: patient, old records reviewed Mode of arrival: Ambulatory Limitations: No Limitations - History of Present Illness Initial Comments: 42-year-old male with a past medical history diabetes, kidney stones, and previous cholecystectomy presents to Hospital complains of left flank pain that radiates to the left groin that started 1 hour prior to arrival. Pain is constant, 10/10 intensity, no activity nor relieving factors. Positive associated nausea without vomiting. Patient denies hematuria, dysuria, urinary frequency, or fever. She states he has never required lithotripsy and has always passed the stone spontaneously. His urologist is affiliated with [facility]. Previous medical record reviewed and patient was here October 06 with complaints of kidney stones, refused CT, and left AGAINST MEDICAL ADVICE at that time. Patient secondary to complaint of sore throat and feeling no skin pain when he swallows. This has been going on for several weeks. Patient has had 2 negative strep tests and been treated with antibiotics without improvement. Patient is not having any difficulty breathing and is able to swallow. Severity scale (0 -10): 5 - Related Data Previous Rx's Medication Instructions Recorded Last Taken Type Cefpodoxime Proxetil 100 mg PO Q12HR #20 tablet 10/19/16 Unknown Rx Ondansetron [Zofran Odt] 4 mg PO QID PRN #20 tab.rapdis 10/19/16 Unknown Rx oxyCODONE [Roxicodone] 5 mg PO Q6HR PRN #15 tablet 10/19/16 Unknown Rx Nitrofurantoin [place]/M-Cryst 100 mg PO Q12HR #14 capsule 12/14/16 Unknown Rx [Macrobid CAP] Ondansetron [Zofran Odt] 4 mg PO QID PRN #20 tab.rapdis 12/14/16 Unknown Rx oxyCODONE [Roxicodone] 5 mg PO Q6HR PRN #15 tablet 12/14/16 Unknown Rx Allergies Allergy/AdvReac Type Severity Reaction Status Date / Time Neuromuscular Blockers, Allergy Rash Verified 06/26/14 01:39 Steroidal [Steroidal Neuromuscular Blockers] NSAIDS (Non-Steroidal Allergy Hives Verified 06/26/14 01:38 Anti-Inflamma prednisone Allergy Unknown Verified 11/06/16 01:39 steriods Allergy Unknown Uncoded 11/06/16 01:40 ED Review of Systems ROS: Stated complaint: PAINFUL URINATION Other details as noted in HPI Comment: All other systems reviewed and negative ED Past Medical Hx - Past Medical History Previous Medical History?: Yes Hx Diabetes: Yes (diet controlled) Hx Kidney Stones: Yes - Surgical History Past Surgical History?: Yes Hx Cholecystectomy: Yes Additional Surgical History: Gallbladder removed. - Social History Smoking Status: Former Smoker Substance Use Type: None - Medications Home Medications: Home Medications Medication Instructions Recorded Confirmed Last Taken Type Cefpodoxime Proxetil 100 mg PO Q12HR #20 tablet 10/19/16 Unknown Rx Ondansetron [Zofran Odt] 4 mg PO QID PRN #20 tab.rapdis 10/19/16 Unknown Rx oxyCODONE [Roxicodone] 5 mg PO Q6HR PRN #15 tablet 10/19/16 Unknown Rx Nitrofurantoin [place]/M-Cryst 100 mg PO Q12HR #14 capsule 12/14/16 Unknown Rx [Macrobid CAP] Ondansetron [Zofran Odt] 4 mg PO QID PRN #20 tab.rapdis 12/14/16 Unknown Rx oxyCODONE [Roxicodone] 5 mg PO Q6HR PRN #15 tablet 12/14/16 Unknown Rx ED Physical Exam - General Limitations: No Limitations - Other Other exam information: General: No limitations, patient is alert in no acute distress Head exam: Atraumatic, normocephalic Eyes exam: Normal appearance, pupils equal reactive to light, extraocular movements intact ENT: Moist mucous membrane, normal oropharynx without any exudates, edema, or erythema Neck exam: Normal inspection, full range of motion, no meningismus nontender, no stridor Respiratory exam: Clear to auscultation bilateral, no wheezes, rales, crackles Cardiovascular: Normal rate and rhythm, normal heart sounds Abdomen: Soft, nondistended, and nontender, with normal bowel sounds, no rebound, or guarding Extremity: Full range of motion normal inspection no deformity Back: Normal Inspection, full range of motion, no tenderness Neurologic: Alert, oriented x3, cranial nerves intact, no motor or sensory deficit Psychiatric: normal affect, normal mood Skin: Warm, dry, intact ED Course Vital Signs 02/02/18 02/02/18 19:30 23:13 Temperature 98.4 F Pulse Rate 100 H Respiratory 18 16 Rate Blood Pressure 138/85 O2 Sat by Pulse 96 Oximetry - Reevaluation(s) Reevaluation #1: 02/03/18 00:16 Patient received Dilaudid and Zofran in the ED. Patient requested something for his sore throat during his ED stay. A lozenge or was ordered. Patient refused CT after tech arrived to take him then started complaining that we are not addressing his throat pain. I informed him that he does not have any signs of airway discomfort in that he needs to see an ear nose and throat doctor so they can do direct visualization of this dosing he is having ongoing throat pain for several weeks despite outpatient treatment. Patient informed that his urine shows signs of infection. Patient decided to leave the department and refuses further treatment stating he will go to another hospital to get his complaints addressed. He refused to sign an AMA form. ED Medical Decision Making - Lab Data Result diagrams: 02/02/18 23:00 02/02/18 23:00 Lab Results 02/02/18 02/02/18 02/02/18 Range/Units 23:00 23:00 Unknown WBC 9.0 (4.5-11.0) K/mm3 RBC 5.20 H (3.65-5.03) M/mm3 Hgb 16.1 H (11.8-15.2) gm/dl Hct 45.2 (35.5-45.6) % MCV 87 (84-94) fl MCH 31 (28-32) pg MCHC 36 H (32-34) % RDW 13.2 (13.2-15.2) % Plt Count 332 (140-440) K/mm3 Baso % (Auto) [employer] Sodium 134 L (137-145) mmol/L Potassium 4.4 (3.6-5.0) mmol/L Chloride 96.0 L (98-107) mmol/L Carbon Dioxide 22 (22-30) mmol/L Anion Gap 20 mmol/L BUN 11 (9-20) mg/dL Creatinine 0.8 (0.8-1.5) mg/dL Estimated GFR > 60 ml/min BUN/Creatinine Ratio 14 % Glucose 196 H (75-100) mg/dL Calcium 9.2 (8.4-10.2) mg/dL Urine Color Yellow (Yellow) Urine Turbidity Clear (Clear) Urine pH 5.0 (5.0-7.0) Ur Specific [place] 1.012 (1.003-1.030) Urine Protein <15 mg/dl (Negative) mg/dL Urine Glucose (UA) 150 (Negative) mg/dL Urine Ketones Neg (Negative) mg/dL Urine Blood Mod (Negative) Urine Nitrite Neg (Negative) Urine Bilirubin Neg (Negative) Urine Urobilinogen < 2.0 (<2.0) mg/dL Ur Leukocyte Esterase Lg (Negative) Urine WBC (Auto) 31.0 H (0.0-6.0) /HPF Urine RBC (Auto) 3.0 (0.0-6.0) /HPF U Epithel Cells (Auto) 2.0 (0-13.0) /HPF Urine Mucus Few /HPF - Medical Decision Making Patient received Dilaudid and Zofran in the ED. Patient requested something for his sore throat during his ED stay. A lozenge or was ordered. Patient refused CT after tech arrived to take him then started complaining that we are not addressing his throat pain. I informed him that he does not have any signs of airway discomfort in that he needs to see an ear nose and throat doctor so they can do direct visualization of this dosing he is having ongoing throat pain for several weeks despite outpatient treatment. Patient informed that his urine shows signs of infection. Patient decided to leave the department and refuses further treatment stating he will go to another hospital to get his complaints addressed. He refused to sign an AMA form And he refused a throat lozenge Patient seems to have a pattern of leaving AGAINST MEDICAL ADVICE after receiving narcotic pain medication and refusing CAT scan to evaluate for kidney stone. - Differential Diagnosis muscle strain, renal colic, drug-seeking, pharyngitis Critical Care Time: No Critical care attestation.: If time is entered above; I have spent that time in minutes in the direct care of this critically ill patient, excluding procedure time. ED Disposition Clinical Impression: Left flank pain, Urine WBC increased, Sore throat Disposition: Z ELOPED Is pt being admited?: No Does the pt Need Aspirin: No Condition: Stable Time of Disposition: 00:13 (refused to sign AMA)
[2018-02-03 02:15] LABS: Total Cells Counted 100
[2018-02-03 02:16] LABS: Basophils % (Manual) 0 % (0.0-1.8); Platelet Estimate Consistent w Auto; RBC Morphology Normal
== END 2018-02-03 00:20 | disposition left against medical advice (07) ==
LOC: ED 18:57
DX: J02.9 Acute pharyngitis, unspecified (principal); D72.829 Elevated white blood cell count, unspecified; R10.9 Unspecified abdominal pain; E11.9 Type 2 diabetes mellitus without complications; Z87.442 Personal history of urinary calculi; Z90.49 Acquired absence of other specified parts of digestive tract; Z87.891 Personal history of nicotine dependence; Z88.8 Allergy status to other drugs, medicaments and biological substances; Z79.899 Other long term (current) drug therapy
CPT/HCPCS: 36415; 80048; 81001; 85007; 85025; 96374; 96375; 99283; J1170; J2405; J7030; J0696

== ENCOUNTER 2018-10-13 00:43 | Emergency (ER) | payer SELFPAY ==
[2018-10-13 00:50] VITALS: BP 152/102
[2018-10-13 01:31] LABS: Basophils # (Auto) 0.1 K/mm3 (0.0-0.1); Basophils % (Auto) 0.8 % (0.0-1.8); Eosinophils # (Auto) 0.3 K/mm3 (0.0-0.4); Hematocrit 46.6 % (35.5-45.6); Hemoglobin 16.2 gm/dl (11.8-15.2); Lymphocytes # (Auto) 2.1 K/mm3 (1.2-5.4); Lymphocytes % (Auto) 27.5 % (13.4-35.0); Mean Corpuscular HGB Conc 35 % (32-34); Mean Corpuscular Volume 89 fl (84-94); Monocytes # (Auto) 0.5 K/mm3 (0.0-0.8); Monocytes % (Auto) 6.9 % (0.0-7.3); Platelet Count 277 K/mm3 (140-440); Red Blood Count 5.26 M/mm3 (3.65-5.03); Red Cell Distribution Width 13.1 % (13.2-15.2)
[2018-10-13 02:09] LABS: BUN/Creatinine Ratio 13; Blood Urea Nitrogen 13 mg/dL (9-20); Calcium 9.4 mg/dL (8.4-10.2); Hemolysis Index 4
[2018-10-13 02:31] LABS: Bilirubin,Urine NEG (Negative); Blood,Urine SM (Negative); Color,Urine Straw (Yellow); Protein,Urine <15 mg/dL mg/dL (Negative); Urobilinogen,Urine < 2.0 mg/dL (<2.0)
[2018-10-13] MEDS ORDERED: NACL 0.9% 1000 ML 1,000 ML IV ONE (05:53)
[2018-10-13] MEDS ORDERED: ZOFRAN IV ONE (05:53)
== END 2018-10-13 05:55 | disposition left against medical advice (07) ==
LOC: ED 00:43
DX: R10.9 Unspecified abdominal pain (principal); Z53.21 Procedure and treatment not carried out due to patient leaving prior to being seen by health care provider
CPT/HCPCS: 36415; 80048; 81001; 85025

== ENCOUNTER 2018-12-25 20:56 | Emergency (ER) | payer BC ==
[2018-12-25 21:14] VITALS: BP 138/96
--- NOTE | 2018-12-25 21:26 | Event Note ---
ED Screening Note Date of service: 12/25/18 Time: 21:08 ED Screening Note: 43 y/o male comes in for left flank pain and hematuria times 2 hours ago. This initial assessment/diagnostic orders/clinical plan/treatment(s) is/are subject to change based on patients health status, clinical progression and re- assessment by fellow clinical providers in the ED. Further treatment and workup at subsequent clinical providers discretion. Patient/guardian urged not to elope from the ED as their condition may be serious if not clinically assessed and managed. Initial orders include:
[2018-12-25 21:44] LABS: Hematocrit 43.8 % (35.5-45.6); Hemoglobin 15.6 gm/dl (11.8-15.2); Mean Corpuscular HGB Conc 36 % (32-34); Mean Corpuscular Volume 88 fl (84-94); Platelet Count 259 K/mm3 (140-440); Red Blood Count 4.97 M/mm3 (3.65-5.03); Red Cell Distribution Width 13.3 % (13.2-15.2)
[2018-12-25] MEDS ORDERED: BENADRYL ONE (21:44)
[2018-12-25] MEDS ORDERED: ZOFRAN ONE (21:44)
[2018-12-25] MEDS ORDERED: TORADOL ONE (21:44)
[2018-12-25] MEDS ORDERED: MORPHINE ONE (21:47)
[2018-12-25] MEDS ORDERED: MORPHINE IV ONE (21:53)
[2018-12-25] MEDS ORDERED: ZOFRAN IV ONE (21:53)
[2018-12-25] MEDS ORDERED: NACL 0.9% 1000 ML 1,000 ML IV ONE (21:55)
[2018-12-25 22:07] LABS: Alanine Aminotransferase 43 units/L (7-56); Albumin 4.1 g/dL (3.9-5); BUN/Creatinine Ratio 12; Blood Urea Nitrogen 11 mg/dL (9-20); Calcium 9.7 mg/dL (8.4-10.2); Hemolysis Index 75
[2018-12-25] MEDS ORDERED: DILAUDID IV ONE (22:30)
--- NOTE | 2018-12-25 22:33 | Emergency Department Report ---
ED Abdominal Pain HPI - General Chief Complaint: Back Pain/Injury Stated Complaint: FLANK PAIN KIDNEY STONE Time Seen by Provider: 12/25/18 21:54 Source: patient Mode of arrival: Ambulatory Limitations: No Limitations - History of Present Illness Initial Comments: This is a 43-year-old male nontoxic, well nourished in appearance, no acute signs of distress presents to the ED with c/o of hematuria and bilateral flank pain x1 day. Patient stated has history of kidney stones and symptoms are similar. Patient denies any penile discharge, bleeding, ulcers or lesions. Patient denies any abdominal pain. Patient denies any nausea, vomiting, chest pain, shortness of breathe, fever, chills, headache, numbness, tingling, stiff neck. Patient denies any other urinary symptoms. MD Complaint: flank pain, other (hematuria) -: days(s) (1) Location: L flank, R flank Radiation: none Migration to: no migration Severity: mild Severity scale (0 -10): 8 Quality: aching Consistency: constant Improves With: nothing Worsens With: nothing Associated Symptoms: denies: nausea, vomiting, diarrhea, fever, chills, constipation, dysuria, hematemesis, hematochezia, melena, hematuria, anorexia, syncope - Related Data Previous Rx's Medication Instructions Recorded Last Taken Type Cefpodoxime Proxetil 100 mg PO Q12HR #20 tablet 10/19/16 Unknown Rx Ondansetron [Zofran Odt] 4 mg PO QID PRN #20 tab.rapdis 10/19/16 Unknown Rx oxyCODONE [Roxicodone] 5 mg PO Q6HR PRN #15 tablet 10/19/16 Unknown Rx Nitrofurantoin [place]/M-Cryst 100 mg PO Q12HR #14 capsule 12/14/16 Unknown Rx [Macrobid CAP] Ondansetron [Zofran Odt] 4 mg PO QID PRN #20 tab.rapdis 12/14/16 Unknown Rx oxyCODONE [Roxicodone] 5 mg PO Q6HR PRN #15 tablet 12/14/16 Unknown Rx Acetaminophen/Codeine [Tylenol 1 tab PO Q6H PRN #12 tab 12/25/18 Unknown Rx /Codeine # 3 tab] Sulfamethoxazole/Trimethoprim 1 each PO BID #20 tablet 12/25/18 Unknown Rx [Bactrim DS TAB] Allergies Allergy/AdvReac Type Severity Reaction Status Date / Time Neuromuscular Blockers, Allergy Rash Verified 10/13/18 00:50 Steroidal [Steroidal Neuromuscular Blockers] NSAIDS (Non-Steroidal Allergy Hives Verified 10/13/18 00:50 Anti-Inflamma prednisone Allergy Unknown Verified 10/13/18 00:50 steriods Allergy Unknown Uncoded 11/06/16 01:40 ED Review of Systems ROS: Stated complaint: FLANK PAIN KIDNEY STONE Other details as noted in HPI Constitutional: denies: chills, fever Eyes: denies: eye pain, eye discharge, vision change ENT: denies: ear pain, throat pain Respiratory: denies: cough, shortness of breath, wheezing Cardiovascular: denies: chest pain, palpitations Endocrine: no symptoms reported Gastrointestinal: other (flank pain). denies: abdominal pain, nausea, diarrhea Genitourinary: hematuria. denies: urgency, dysuria Musculoskeletal: denies: back pain, joint swelling, arthralgia Skin: denies: rash, lesions Neurological: denies: headache, weakness, paresthesias Psychiatric: denies: anxiety, depression Hematological/Lymphatic: denies: easy bleeding, easy bruising ED Past Medical Hx - Past Medical History Previous Medical History?: Yes Hx Diabetes: Yes (diet controlled) Hx Kidney Stones: Yes - Surgical History Past Surgical History?: Yes Hx Cholecystectomy: Yes Additional Surgical History: Gallbladder removed. - Social History Smoking Status: Never Smoker Substance Use Type: None - Medications Home Medications: Home Medications Medication Instructions Recorded Confirmed Last Taken Type Cefpodoxime Proxetil 100 mg PO Q12HR #20 tablet 10/19/16 Unknown Rx Ondansetron [Zofran Odt] 4 mg PO QID PRN #20 tab.rapdis 10/19/16 Unknown Rx oxyCODONE [Roxicodone] 5 mg PO Q6HR PRN #15 tablet 10/19/16 Unknown Rx Nitrofurantoin [place]/M-Cryst 100 mg PO Q12HR #14 capsule 12/14/16 Unknown Rx [Macrobid CAP] Ondansetron [Zofran Odt] 4 mg PO QID PRN #20 tab.rapdis 12/14/16 Unknown Rx oxyCODONE [Roxicodone] 5 mg PO Q6HR PRN #15 tablet 12/14/16 Unknown Rx Acetaminophen/Codeine [Tylenol 1 tab PO Q6H PRN #12 tab 12/25/18 Unknown Rx /Codeine # 3 tab] Sulfamethoxazole/Trimethoprim 1 each PO BID #20 tablet 12/25/18 Unknown Rx [Bactrim DS TAB] ED Physical Exam - General Limitations: No Limitations General appearance: alert, in no apparent distress - Head Head exam: Present: atraumatic, normocephalic - Eye Eye exam: Present: normal appearance - Neck Neck exam: Present: normal inspection, full ROM. Absent: tenderness, meningismus, lymphadenopathy - GI/Abdominal GI/Abdominal exam: Present: soft, normal bowel sounds. Absent: distended, tenderness, guarding, rebound, rigid, diminished bowel sounds - Rectal Rectal exam: Present: deferred - Extremities Exam Extremities exam: Present: normal inspection, full ROM - Back Exam Back exam: Present: normal inspection, full ROM, CVA tenderness (R), CVA tenderness (L). Absent: tenderness, muscle spasm, paraspinal tenderness, vertebral tenderness, rash noted - Neurological Exam Neurological exam: Present: alert, oriented X3, normal gait - Psychiatric Psychiatric exam: Present: normal affect, normal mood - Skin Skin exam: Present: warm, dry, intact, normal color. Absent: rash ED Course Vital Signs 12/25/18 21:11 Temperature 98.8 F Pulse Rate 100 H Respiratory 20 Rate Blood Pressure 138/96 O2 Sat by Pulse 97 Oximetry - Reevaluation(s) Reevaluation #1: 12/25/18 22:36 Patient is speaking in full sentences with no signs of distress noted. ED Medical Decision Making - Lab Data Result diagrams: 12/25/18 21:38 12/25/18 21:38 - Medical Decision Making This is a 43-year-old male that presents with flank pain and hematuria. Patient is stable and was examined by me. There is no abdominal tenderness. Labs obt ained. UA obtained. CT of abdomen has been ordered by patient refused and stated will f/u with urologist. Patient was instructed and educated of my concerns if the stone is the headache and causes blockage and the consequences due to this patient still refused. Vital signs are stable. Patient received medical treatment in the ED which patient stated symptoms has resolved and subsided. Was instructed note to operate any machinery due to possible drowsiness and stated someone will drive the patient home. A by mouth challenge has been obtained and patient tolerated well with no nausea vomiting. Patient signed AGAINST MEDICAL ADVICE. Patient was also instructed to Follow-up with a primary care/urologist doctor in 24 hours or if symptoms worsen and continue return to emergency room as soon as possible. At time of signing AMA, the patient does not seem toxic or ill in appearance. No acute signs of distress noted. Patient agrees to treatment plan of care. No further questions noted by the patient. Critical care attestation.: If time is entered above; I have spent that time in minutes in the direct care of this critically ill patient, excluding procedure time. ED Disposition Clinical Impression: Flank pain Hematuria Qualifiers: Hematuria type: unspecified type Qualified Code(s): R31.9 - Hematuria, unspecified UTI (urinary tract infection) Qualifiers: Urinary tract infection type: acute cystitis Hematuria presence: without hematuria Qualified Code(s): N30.00 - Acute cystitis without hematuria Disposition: LEFT AGAINST MED ADVICE Is pt being admited?: No Does the pt Need Aspirin: No Condition: Stable Instructions: Acetaminophen/Codeine (By mouth) Additional Instructions: Follow-up with a primary care/urologist doctor in 24 hours or if symptoms worsen and continue return to emergency room as soon as possible. Do not operate any machinery while taking Tylenol with codeine as this may cause drowsiness. Your condition may be serious as instructed and educated today in the ER but you decided to leave AGAINST MEDICAL ADVICE. It is highly recommended to see a provider as soon as possible to rule out serious complications of the medical conditions as was told to you. Prescriptions: Sulfamethoxazole/Trimethoprim [Bactrim DS TAB] 1 each PO BID #20 tablet Acetaminophen/Codeine [Tylenol /Codeine # 3 tab] 1 tab PO Q6H PRN #12 tab PRN Reason: Pain , Severe (7-10) Referrals: ANNABEL WILCOX MD [Primary Care Provider] - 3-5 Days PRIMARY CAREMD [Referring] - 3-5 Days GABRIELA PATTERSON MD [Staff Physician] - ERVIN YAKELIN KAPADIA MD [Staff Physician] - ERVIN Forms: AMA Form, Work/School Release Form(ED)
[2018-12-25 23:19] LABS: Bacteria,Urine 1+ /HPF (Negative); Bilirubin,Urine NEG (Negative); Blood,Urine SM (Negative); Color,Urine Yellow (Yellow); Protein,Urine <15 mg/dL mg/dL (Negative); Urobilinogen,Urine < 2.0 mg/dL (<2.0)
[2018-12-26 02:34] LABS: Band Neutrophils # (Manual) 0.1 K/mm3; Total Cells Counted 100
[2018-12-26 02:35] LABS: RBC Morphology Normal
== END 2018-12-26 00:05 | disposition left against medical advice (07) ==
LOC: ED 20:56
DX: N30.01 Acute cystitis with hematuria (principal); E11.9 Type 2 diabetes mellitus without complications; Z87.442 Personal history of urinary calculi; Z90.49 Acquired absence of other specified parts of digestive tract; Z98.890 Other specified postprocedural states; Z79.899 Other long term (current) drug therapy; Z88.8 Allergy status to other drugs, medicaments and biological substances
CPT/HCPCS: 36415; 80053; 81001; 85007; 85025; 87086; 96374; 96375; 99283; J1170; J2270; J2405; J7030; J1200; J1885

== ENCOUNTER 2020-02-29 21:34 | Emergency (ER) | payer SELFPAY ==
[2020-02-29 21:51] LABS: Mean Corpuscular Volume 87 fl (84-94); Platelet Count 257 K/mm3 (140-440)
[2020-02-29 21:52] LABS: Hemoglobin 15.5 gm/dl (11.8-15.2)
[2020-02-29 21:53] LABS: Hematocrit 40.8 % (35.5-45.6)
[2020-02-29 21:54] LABS: Mean Corpuscular HGB Conc 38 % (32-34)
[2020-02-29 22:14] LABS: Alanine Aminotransferase 52 units/L (7-56); Albumin 4.2 g/dL (3.9-5); BUN/Creatinine Ratio 13; Blood Urea Nitrogen 12 mg/dL (9-20); Calcium 9.6 mg/dL (8.4-10.2); Hemolysis Index 17
[2020-02-29] MEDS ORDERED: ONDANSETRON 4 MG/2 ML INJ IV ONE (22:17)
[2020-02-29] MEDS ORDERED: HYDROmorphone 1 MG/1 ML INJ IV ONE ×3 (22:17→23:16)
[2020-02-29] MEDS ORDERED: SODIUM CHLORIDE 0.9% 1000 ML 1,000 ML IV ONE (22:17)
[2020-02-29 22:20] LABS: Bilirubin,Urine NEG (Negative); Color,Urine Yellow (Yellow)
[2020-02-29 22:21] LABS: Blood,Urine SM (Negative); Mucus,Urine FEW /HPF; Protein,Urine <15 mg/dL mg/dL (Negative); Urobilinogen,Urine < 2.0 mg/dL (<2.0)
[2020-02-29 22:26] LABS: Myelocytes # (Manual) 0.1 K/mm3; Total Cells Counted 100
[2020-02-29 22:27] LABS: Anisocytosis Few; Platelet Estimate Consistent w Auto
--- NOTE | 2020-02-29 22:32 | Emergency Department Report ---
ED Back Pain/Injury HPI - General Chief Complaint: Abdominal Pain Stated Complaint: LEFT SIDE PAIN Time Seen by Provider: 02/29/20 22:16 Source: patient Mode of arrival: Ambulatory Limitations: No Limitations - History of Present Illness Initial Comments: Mr. Urena is a 44 yo male with hx of DM, kidney stones who presents left flank pain 20/10 dull sudden onset one hour prior to arrival. +nausea. Feel like previous sensation of renal colic. MD Complaint: back pain -: Sudden, hour(s) (2.5 hours) Place: home Severity: severe Severity scale (0 -10): 10 Quality: dull Consistency: constant Improves With: none Worsens With: none Associated Symptoms: other (nausea) - Related Data Previous Rx's Medication Instructions Recorded Last Taken Type Cefpodoxime Proxetil 100 mg PO Q12HR #20 tablet 10/19/16 Unknown Rx Ondansetron [Zofran Odt] 4 mg PO QID PRN #20 tab.rapdis 10/19/16 Unknown Rx oxyCODONE [Roxicodone] 5 mg PO Q6HR PRN #15 tablet 10/19/16 Unknown Rx Nitrofurantoin [place]/M-Cryst 100 mg PO Q12HR #14 capsule 12/14/16 Unknown Rx [Macrobid CAP] Ondansetron [Zofran Odt] 4 mg PO QID PRN #20 tab.rapdis 12/14/16 Unknown Rx oxyCODONE [Roxicodone] 5 mg PO Q6HR PRN #15 tablet 12/14/16 Unknown Rx Acetaminophen/Codeine [Tylenol 1 tab PO Q6H PRN #12 tab 12/25/18 Unknown Rx /Codeine # 3 tab] Sulfamethoxazole/Trimethoprim 1 each PO BID #20 tablet 12/25/18 Unknown Rx [Bactrim DS TAB] Tamsulosin [Flomax] 0.4 mg PO QDAY 5 Days #5 cap 03/01/20 Unknown Rx oxyCODONE /ACETAMINOPHEN [Percocet 1 tab PO Q6HR PRN #10 tablet 03/01/20 Unknown Rx 5/325] Allergies Allergy/AdvReac Type Severity Reaction Status Date / Time Neuromuscular Blockers, Allergy Rash Verified 10/13/18 00:50 Steroidal [Steroidal Neuromuscular Blockers] NSAIDS (Non-Steroidal Allergy Hives Verified 10/13/18 00:50 Anti-Inflamma prednisone Allergy Unknown Verified 10/13/18 00:50 steriods Allergy Unknown Uncoded 11/06/16 01:40 ED Review of Systems ROS: Stated complaint: LEFT SIDE PAIN Other details as noted in HPI Comment: All other systems reviewed and negative Constitutional: denies: fever, malaise Respiratory: denies: cough Gastrointestinal: nausea. denies: abdominal pain Musculoskeletal: back pain ED Past Medical Hx - Past Medical History Previous Medical History?: Yes Hx Hypertension: Yes Hx Diabetes: Yes (PO and Insulin) Hx Kidney Stones: Yes - Surgical History Past Surgical History?: Yes Hx Cholecystectomy: Yes Additional Surgical History: Gallbladder removed. - Social History Smoking Status: Light Tobacco Smoker Substance Use Type: None - Medications Home Medications: Home Medications Medication Instructions Recorded Confirmed Last Taken Type Cefpodoxime Proxetil 100 mg PO Q12HR #20 tablet 10/19/16 Unknown Rx Ondansetron [Zofran Odt] 4 mg PO QID PRN #20 tab.rapdis 10/19/16 Unknown Rx oxyCODONE [Roxicodone] 5 mg PO Q6HR PRN #15 tablet 10/19/16 Unknown Rx Nitrofurantoin [place]/M-Cryst 100 mg PO Q12HR #14 capsule 12/14/16 Unknown Rx [Macrobid CAP] Ondansetron [Zofran Odt] 4 mg PO QID PRN #20 tab.rapdis 12/14/16 Unknown Rx oxyCODONE [Roxicodone] 5 mg PO Q6HR PRN #15 tablet 12/14/16 Unknown Rx Acetaminophen/Codeine [Tylenol 1 tab PO Q6H PRN #12 tab 12/25/18 Unknown Rx /Codeine # 3 tab] Sulfamethoxazole/Trimethoprim 1 each PO BID #20 tablet 12/25/18 Unknown Rx [Bactrim DS TAB] Tamsulosin [Flomax] 0.4 mg PO QDAY 5 Days #5 cap 03/01/20 Unknown Rx oxyCODONE /ACETAMINOPHEN [Percocet 1 tab PO Q6HR PRN #10 tablet 03/01/20 Unknown Rx 5/325] ED Physical Exam - General Limitations: No Limitations General appearance: alert, in no apparent distress, other (walking around room, appears uncomfortable) - Head Head exam: Present: atraumatic, normocephalic - Eye Eye exam: Present: normal appearance - ENT ENT exam: Present: mucous membranes moist - Neck Neck exam: Present: normal inspection, full ROM - Respiratory Respiratory exam: Present: normal lung sounds bilaterally. Absent: respiratory distress, wheezes, rales, rhonchi - Cardiovascular Cardiovascular Exam: Present: normal rhythm, tachycardia, normal heart sounds. Absent: systolic murmur, diastolic murmur, rubs, gallop - GI/Abdominal GI/Abdominal exam: Present: soft, normal bowel sounds. Absent: distended, tenderness, guarding, rebound - Rectal Rectal exam: Present: deferred - Extremities Exam Extremities exam: Present: normal inspection - Back Exam Back exam: Present: normal inspection, full ROM. Absent: tenderness, CVA tenderness (R), CVA tenderness (L), muscle spasm, paraspinal tenderness, vertebral tenderness, rash noted - Neurological Exam Neurological exam: Present: alert, oriented X3, normal gait - Psychiatric Psychiatric exam: Present: normal affect, normal mood - Skin Skin exam: Present: warm, dry, intact, normal color. Absent: rash ED Course Vital Signs 02/29/20 02/29/20 02/29/20 21:36 22:27 22:57 Temperature 97.9 F Pulse Rate 106 H Respiratory 18 16 19 Rate Blood Pressure 150/84 O2 Sat by Pulse 95 Oximetry 02/29/20 02/29/20 03/01/20 23:09 23:39 00:05 Temperature Pulse Rate Respiratory 19 19 19 Rate Blood Pressure O2 Sat by Pulse Oximetry 03/01/20 00:23 Temperature Pulse Rate Respiratory 16 Rate Blood Pressure O2 Sat by Pulse Oximetry ED Medical Decision Making - Lab Data Result diagrams: 02/29/20 21:40 02/29/20 21:40 - Radiology Data Radiology results: report reviewed ULTRASOUND RENAL INDICATION: renal colic left flank pain. renal colic left flank pain COMPARISON: No relevant prior imaging study available. FINDINGS: RIGHT KIDNEY: Size: 11.7 cm. Echogenicity: Normal. Cortical thickness: 2.0. Hydronephrosis: None. Cyst or mass: None Stones: 3 calculi present right kidney largest measuring 1.4 cm. LEFT KIDNEY: Size: cm. Echogenicity: Normal. Cortical thickness: Normal. Hydronephrosis: None. Cyst or mass: None. Stones: Single calculus present left kidney largest measuring 0.7 cm. Urinary Bladder: No significant abnormality. Free Fluid: None. Additional Findings: None. IMPRESSION - Medical Decision Making Mr. Urena presents with sudden onset of left flank pain with nausea typical for previous episodes of renal colic. He declined CT scan. Renal ultrasound reveals bilateral nephrolithiasis without hydronephrosis. I suspect lumbar strain versus small ureterolithiasis which has passed spontaneously. Patient received 4 mg total of IV hydromorphone with improvement of pain. Pain is now 6 out of 10. He did not desire any additional doses of IV analgesia. He did develop pruritus which I attributed to hydromorphone. I have prescribed Flomax, Percocet. He politely requested first dose of Flomax to be given here in the emergency department. He also received IV antiemetic. He politely declined IV fluid therapy. He will follow-up with his personal urologist as needed. I have reviewed labs. CBC within normal limits. Chemistry unremarkable. Urinalysis contaminated. No signs of SIRS. Critical care attestation.: If time is entered above; I have spent that time in minutes in the direct care of this critically ill patient, excluding procedure time. ED Disposition Clinical Impression: Renal colic on left side, Nephrolithiasis Disposition: - TO HOME OR SELFCARE Is pt being admited?: No Does the pt Need Aspirin: No Condition: Stable Instructions: Kidney Stones (ED), Flank Pain (ED) Prescriptions: Tamsulosin [Flomax] 0.4 mg PO QDAY 5 Days #5 cap oxyCODONE /ACETAMINOPHEN [Percocet 5/325] 1 tab PO Q6HR PRN #10 tablet PRN Reason: Pain Referrals: PRIMARY CARE, [Primary Care Provider] - 3-5 Days
[2020-03-01] MEDS ORDERED: HYDROmorphone 1 MG/1 ML INJ IV ONE (00:13)
--- NOTE | 2020-03-01 00:26 | Ultrasound Report ---
ULTRASOUND RENAL INDICATION: renal colic left flank pain. renal colic left flank pain COMPARISON: No relevant prior imaging study available. FINDINGS: RIGHT KIDNEY: Size: 11.7 cm. Echogenicity: Normal. Cortical thickness: 2.0. Hydronephrosis: None. Cyst or mass: None Stones: 3 calculi present right kidney largest measuring 1.4 cm. LEFT KIDNEY: Size: cm. Echogenicity: Normal. Cortical thickness: Normal. Hydronephrosis: None. Cyst or mass: None. Stones: Single calculus present left kidney largest measuring 0.7 cm. Urinary Bladder: No significant abnormality. Free Fluid: None. Additional Findings: None. IMPRESSION 1. Bilateral nephrolithiasis Signer Name: Gilmar Eranndez MD Signed: 03/01/2020 12:22 AM Workstation Name: [id number]
[2020-03-01] MEDS ORDERED: diphenhydrAMINE 50 MG/ML VIAL IV ONE (00:42)
[2020-03-01] MEDS ORDERED: oxyCODONE /ACETAMINOPHEN 5-325MG TAB PO ONE (00:42)
[2020-03-01 00:52] VITALS: BP 138/81
[2020-03-01] MEDS ORDERED: TAMSULOSIN 0.4 MG CAP PO ONE (01:12)
== END 2020-03-01 01:11 | disposition home or self-care (01) ==
LOC: ED 21:34
DX: N20.0 Calculus of kidney (principal); I10 Essential (primary) hypertension; E11.9 Type 2 diabetes mellitus without complications; F17.200 Nicotine dependence, unspecified, uncomplicated; Z79.899 Other long term (current) drug therapy; Z90.49 Acquired absence of other specified parts of digestive tract; Z88.0 Allergy status to penicillin
CPT/HCPCS: 36415; 76770; 80053; 81001; 83690; 85007; 85025; 87086; 96361; 96374; 96375; 96376; 99284; J1170; J1200; J2405; J7030

== ENCOUNTER 2020-04-14 16:15 | Emergency (ER) | payer BC, OTHER ==
[2020-04-14 16:49] VITALS: BP 149/86
[2020-04-14] MEDS ORDERED: oxyCODONE /ACETAMINOPHEN 5-325MG TAB PO ONE (16:49)
[2020-04-14] MEDS ORDERED: ONDANSETRON 4 MG ODT TAB PO ONE (16:50)
--- NOTE | 2020-04-14 19:31 | XRay Report ---
XR knee 1-2V RT INDICATION: Right knee pain after fall. COMPARISON: No relevant prior imaging study available. FINDINGS: Positioning is suboptimal. Accounting for this, no acute fracture or dislocation is seen. No significant soft tissue abnormality. IMPRESSION: 1. No acute findings. Signer Name: Marcial Mackenzie MD Signed: 04/14/2020 7:26 PM Workstation Name: [email or web address]
--- NOTE | 2020-04-14 19:33 | XRay Report ---
XR tibia fibula 2V RT INDICATION: MAIN. COMPARISON: No relevant prior imaging study available. FINDINGS: No acute skeletal abnormality. No significant soft tissue abnormality. IMPRESSION: 1. No acute findings. Signer Name: Marcial Mackenzie MD Signed: 04/14/2020 7:28 PM Workstation Name: [id number]
--- NOTE | 2020-04-14 19:34 | XRay Report ---
XR femur 2+V RT INDICATION: MAIN. COMPARISON: No relevant prior imaging study available. FINDINGS: No acute skeletal abnormality. No significant soft tissue abnormality. IMPRESSION: 1. No acute findings. Signer Name: Marcial Mackenzie MD Signed: 04/14/2020 7:29 PM Workstation Name: [id number]
[2020-04-14] MEDS ORDERED: NEOMY 3.5 MG/BACIT 400 UNITS/POLY B 5000 UNITS/GM OINT PACKET TP STA (20:09)
[2020-04-14] MEDS ORDERED: MORPHINE 4 MG/1 ML INJ IM STA (20:14)
--- NOTE | 2020-04-14 20:29 | Emergency Department Report ---
ED Lower Extremity HPI - General Chief Complaint: Extremity Injury, Lower Stated Complaint: RIGHT LEG PAIN Time Seen by Provider: 04/14/20 17:26 Source: patient Mode of arrival: Wheelchair Limitations: No Limitations - History of Present Illness Initial Comments: 44-year-old male was at work working on a bobcat doing demolition at the [employer] when he was placing some concrete on the back of a truck rebar got caught to the bobcat causing the concrete to swing back into the bulk up falling onto his left hitting his right knee. Pain is dull and throbbing worse with palpation and range of motion and weightbearing. He reports some swelling. He initially went to [facility] to seek therapy with advised him to come to the ER for further evaluation and treatment options. No numbness or tingling has been appreciated MD Complaint: knee injury Injury: Knee: Right Place: work Severity: moderate Worsens With: weight bearing, movement, palpation Context: direct blow Associated Symptoms: swelling, able to partially bear weight - Related Data Previous Rx's Medication Instructions Recorded Last Taken Type Cefpodoxime Proxetil 100 mg PO Q12HR #20 tablet 10/19/16 Unknown Rx Ondansetron [Zofran Odt] 4 mg PO QID PRN #20 tab.rapdis 10/19/16 Unknown Rx oxyCODONE [Roxicodone] 5 mg PO Q6HR PRN #15 tablet 10/19/16 Unknown Rx Nitrofurantoin [place]/M-Cryst 100 mg PO Q12HR #14 capsule 12/14/16 Unknown Rx [Macrobid CAP] Ondansetron [Zofran Odt] 4 mg PO QID PRN #20 tab.rapdis 12/14/16 Unknown Rx oxyCODONE [Roxicodone] 5 mg PO Q6HR PRN #15 tablet 12/14/16 Unknown Rx Acetaminophen/Codeine [Tylenol 1 tab PO Q6H PRN #12 tab 12/25/18 Unknown Rx /Codeine # 3 tab] Sulfamethoxazole/Trimethoprim 1 each PO BID #20 tablet 12/25/18 Unknown Rx [Bactrim DS TAB] Tamsulosin [Flomax] 0.4 mg PO QDAY 5 Days #5 cap 03/01/20 Unknown Rx oxyCODONE /ACETAMINOPHEN [Percocet 1 tab PO Q6HR PRN #10 tablet 03/01/20 Unknown Rx 5/325] Chlorhexidine Gluconate [Hibiclens] 10 ml TP BID #240 liquid 04/14/20 Unknown Rx Mupirocin [Bactroban 2%] 15 applic TP TID #15 gm 04/14/20 Unknown Rx cephALEXin [Keflex] 500 mg PO Q6HR #40 capsule 04/14/20 Unknown Rx traMADoL [Ultram] 50 mg PO Q6HR PRN #20 tablet 04/14/20 Unknown Rx Allergies Allergy/AdvReac Type Severity Reaction Status Date / Time Neuromuscular Blockers, Allergy Rash Verified 10/13/18 00:50 Steroidal [Steroidal Neuromuscular Blockers] NSAIDS (Non-Steroidal Allergy Hives Verified 10/13/18 00:50 Anti-Inflamma prednisone Allergy Unknown Verified 10/13/18 00:50 steriods Allergy Unknown Uncoded 11/06/16 01:40 ED Review of Systems ROS: Stated complaint: RIGHT LEG PAIN Other details as noted in HPI Comment: All other systems reviewed and negative ED Past Medical Hx - Past Medical History Previous Medical History?: Yes Hx Hypertension: Yes Hx Diabetes: Yes (PO and Insulin) Hx Kidney Stones: Yes - Surgical History Past Surgical History?: Yes Hx Cholecystectomy: Yes Additional Surgical History: Gallbladder removed. - Social History Smoking Status: Light Tobacco Smoker Substance Use Type: None - Medications Home Medications: Home Medications Medication Instructions Recorded Confirmed Last Taken Type Cefpodoxime Proxetil 100 mg PO Q12HR #20 tablet 10/19/16 Unknown Rx Ondansetron [Zofran Odt] 4 mg PO QID PRN #20 tab.rapdis 10/19/16 Unknown Rx oxyCODONE [Roxicodone] 5 mg PO Q6HR PRN #15 tablet 10/19/16 Unknown Rx Nitrofurantoin [place]/M-Cryst 100 mg PO Q12HR #14 capsule 12/14/16 Unknown Rx [Macrobid CAP] Ondansetron [Zofran Odt] 4 mg PO QID PRN #20 tab.rapdis 12/14/16 Unknown Rx oxyCODONE [Roxicodone] 5 mg PO Q6HR PRN #15 tablet 12/14/16 Unknown Rx Acetaminophen/Codeine [Tylenol 1 tab PO Q6H PRN #12 tab 12/25/18 Unknown Rx /Codeine # 3 tab] Sulfamethoxazole/Trimethoprim 1 each PO BID #20 tablet 12/25/18 Unknown Rx [Bactrim DS TAB] Tamsulosin [Flomax] 0.4 mg PO QDAY 5 Days #5 cap 03/01/20 Unknown Rx oxyCODONE /ACETAMINOPHEN [Percocet 1 tab PO Q6HR PRN #10 tablet 03/01/20 Unknown Rx 5/325] Chlorhexidine Gluconate [Hibiclens] 10 ml TP BID #240 liquid 04/14/20 Unknown Rx Mupirocin [Bactroban 2%] 15 applic TP TID #15 gm 04/14/20 Unknown Rx cephALEXin [Keflex] 500 mg PO Q6HR #40 capsule 04/14/20 Unknown Rx traMADoL [Ultram] 50 mg PO Q6HR PRN #20 tablet 04/14/20 Unknown Rx ED Physical Exam - General Limitations: No Limitations General appearance: alert, in no apparent distress - Head Head exam: Present: atraumatic, normocephalic - Eye Eye exam: Present: normal appearance, PERRL, EOMI Pupils: Present: normal accommodation - ENT ENT exam: Present: normal exam, normal orophraynx, mucous membranes moist - Neck Neck exam: Present: normal inspection - Respiratory Respiratory exam: Present: normal lung sounds bilaterally. Absent: respiratory distress - Cardiovascular Cardiovascular Exam: Present: regular rate, normal rhythm. Absent: systolic murmur, diastolic murmur, rubs, gallop - GI/Abdominal GI/Abdominal exam: Present: soft, normal bowel sounds - Rectal Rectal exam: Present: deferred - Extremities Exam Extremities exam: Present: normal inspection, tenderness, joint swelling. Absent: normal capillary refill - Expanded Lower Extremity Exam Right Knee exam: Present: tenderness, swelling, abrasion, effusion. Absent: laceration, deformity, erythema Lower Leg exam: Present: abrasion Ankle exam: Present: normal inspection. Absent: tenderness, swelling Foot/Toe exam: Present: normal inspection Neuro vascular tendon exam: Present: no vascular compromise. Absent: pulse deficit, abnormal cap refill - Back Exam Back exam: Present: normal inspection - Neurological Exam Neurological exam: Present: alert, oriented X3 - Psychiatric Psychiatric exam: Present: normal affect, normal mood - Skin Skin exam: Present: warm, dry, intact, normal color. Absent: rash ED Course Vital Signs 04/14/20 16:49 Temperature 98 F Pulse Rate 113 H Respiratory 20 Rate Blood Pressure 149/86 [Right] O2 Sat by Pulse 98 Oximetry - Procedure Description Procedures done: Right knee was placed in a knee immobilizer and crutches were provided along with education he was neurovascularly intact. ED Lower Extremity MDM - Radiology Data Radiology results: report reviewed [address] [address] XRay Report Signed Patient: KACI STRINGER MR#: [id number] : 1975 Acct:[id number] Age/Sex: 44 / M ADM Date: 04/14/20 Loc: ED Attending Dr: Ordering Physician: Mary Jane Coy MD Date of Service: 04/14/20 Procedure(s): XR tibia fibula 2V RT Accession Number(s): [id number] cc: Mary Jane Coy MD Fluoro Time In Minutes: XR tibia fibula 2V RT INDICATION: MAIN. COMPARISON: No relevant prior imaging study available. FINDINGS: No acute skeletal abnormality. No significant soft tissue abnormality. IMPRESSION: 1. No acute findings. Signer Name: Marcial Mackenzie MD Signed: 04/14/2020 7:28 PM Workstation Name: [id number] Transcribed By: Dictated By: Marcial Mackenzie MD Electronically Authenticated By: Marcial Mackenzie MD Signed Date/Time: 04/14/201927 DD/ 27 TD/TT: [address] [address] XRay Report Signed Patient: KACI STRINGER MR#: [id number] : 1975 Acct:[id number] Age/Sex: 44 / M ADM Date: 04/14/20 Loc: ED Attending Dr: Ordering Physician: Mary Jane Coy MD Date of Service: 04/14/20 Procedure(s): XR knee 1-2V RT Accession Number(s): [id number] cc: Mary Jane Coy MD Fluoro Time In Minutes: XR knee 1-2V RT INDICATION: Right knee pain after fall. COMPARISON: No relevant prior imaging study available. FINDINGS: Positioning is suboptimal. Accounting for this, no acute fracture or dislocation is seen. No significant soft tissue abnormality. IMPRESSION: 1. No acute findings. Signer Name: Marcial Mackenzie MD Signed: 04/14/2020 7:26 PM Workstation Name: [id number] Transcribed By: ALEX Dictated By: Marcial Mackenzie MD Electronically Authenticated By: Marcial Mackenzie MD Signed Date/Time: 04/14/201925 DD/ 25 TD/TT:Referring Physician:MARY JANE ATKINSPatient Name:KACI ROCKWELL atient ID:[id number] of :[id number]:MaleAccession:[id number] Date:[id number] Status:Finalized Findings [facility] [address] [place] [address] XRay Report Signed Patient: KACI STRINGER MR#: [id number] : 1975 Acct:[id number] Age/Sex: 44 / M ADM Date: 04/14/20 Loc: ED Attending Dr: Ordering Physician: Mary Jane Coy MD Date of Service: 04/14/20 Procedure(s): XR femur 2+V RT Accession Number(s): [id number] cc: Mary Jane Coy MD Fluoro Time In Minutes: XR femur 2+V RT INDICATION: MAIN. COMPARISON: No relevant prior imaging study available. FINDINGS: No acute skeletal abnormality. No significant soft tissue abnormality. IMPRESSION: 1. No acute findings. Signer Name: Marcial Mackenzie MD Signed: 04/14/2020 7:29 PM Workstation Name: [id number] Transcribed By: ALEX Dictated By: Marcial Mackenzie MD Electronically Authenticated By: Marcial Mackenzie MD Signed Date/Time: 04/14/201928 DD/ 27 TD/TT: Critical care attestation.: If time is entered above; I have spent that time in minutes in the direct care of this critically ill patient, excluding procedure time. ED Disposition Clinical Impression: Knee contusion, Leg abrasion Disposition: DC-01 TO HOME OR SELFCARE Is pt being admited?: No Does the pt Need Aspirin: No Condition: Stable Instructions: Knee Pain (ED), Contusion in Adults (ED) Prescriptions: Mupirocin [Bactroban 2%] 15 applic TP TID #15 gm Chlorhexidine Gluconate [Hibiclens] 10 ml TP BID #240 liquid cephALEXin [Keflex] 500 mg PO Q6HR #40 capsule traMADoL [Ultram] 50 mg PO Q6HR PRN #20 tablet PRN Reason: Pain Referrals: PRIMARY CARE, [Primary Care Provider] - 3-5 Days [facility] [Provider Group] - 3-5 Days
== END 2020-04-14 21:45 | disposition home or self-care (01) ==
LOC: ED 16:15
DX: S80.01XA Contusion of right knee, initial encounter (principal); S80.811A Abrasion, right lower leg, initial encounter; I10 Essential (primary) hypertension; F17.200 Nicotine dependence, unspecified, uncomplicated; E11.9 Type 2 diabetes mellitus without complications; Z87.442 Personal history of urinary calculi; Z90.49 Acquired absence of other specified parts of digestive tract; Z79.899 Other long term (current) drug therapy; Z88.8 Allergy status to other drugs, medicaments and biological substances; Z98.890 Other specified postprocedural states; W19.XXXA Unspecified fall, initial encounter; Y93.89 Activity, other specified; Y92.89 Other specified places as the place of occurrence of the external cause; Y99.0 Civilian activity done for income or pay
CPT/HCPCS: 29505; 73552; 73560; 73590; 96372; 99283; A6250; J2270; Q0162

== ENCOUNTER 2020-11-21 18:26 | Emergency (ER) | payer SELFPAY ==
[2020-11-21 19:18] VITALS: BP 152/94
[2020-11-21] MEDS ORDERED: MORPHINE 4 MG/1 ML INJ IV ONE (19:32)
[2020-11-21] MEDS ORDERED: ONDANSETRON 4 MG/2 ML INJ IV ONE (19:32)
[2020-11-21] MEDS ORDERED: SODIUM CHLORIDE 0.9% 1000 ML 1,000 ML IV ONE (19:32)
[2020-11-21 19:46] LABS: Hematocrit 45.9 % (35.5-45.6); Hemoglobin 16.3 gm/dl (11.8-15.2); Mean Corpuscular HGB Conc 36 % (32-34); Mean Corpuscular Volume 87 fl (84-94); Platelet Count 307 K/mm3 (140-440); Red Blood Count 5.24 M/mm3 (3.65-5.03); Red Cell Distribution Width 12.9 % (13.2-15.2)
[2020-11-21 20:10] LABS: Alanine Aminotransferase 47 units/L (7-56); Albumin 4.5 g/dL (3.9-5); BUN/Creatinine Ratio 13; Blood Urea Nitrogen 12 mg/dL (9-20); Calcium 9.1 mg/dL (8.4-10.2); Hemolysis Index 28
[2020-11-21] MEDS ORDERED: METOCLOPRAMIDE 10 MG/2 ML INJ IV ONE (20:42)
[2020-11-21] MEDS ORDERED: fentaNYL 100 MCG/2 ML INJ IV ONE (20:42)
[2020-11-21 21:43] LABS: Bilirubin,Urine NEG (Negative); Blood,Urine NEG (Negative); Color,Urine Yellow (Yellow); Mucus,Urine FEW /HPF; Protein,Urine <15 mg/dL mg/dL (Negative); Urobilinogen,Urine < 2.0 mg/dL (<2.0)
--- NOTE | 2020-11-21 21:55 | Emergency Department Report ---
ED Abdominal Pain HPI - General Chief Complaint: Back Pain/Injury Stated Complaint: RT SIDE PAIN Source: patient Mode of arrival: Ambulatory Limitations: No Limitations - History of Present Illness Initial Comments: Patient is a 45-year-old male with a history of opw-ydvambc-tikpckosr diabetes, hypertension and chronic recurrent kidney stones who presents to the ED with complaint of acute onset persistent severe right flank pain that radiates to the right lower quadrant and suprapubic areas with nausea for the last 6 hours. Patient states that the symptoms are similar to what he has previously felt whenever he had recurrent kidney stones. Patient states that he has previously come to the ED for evaluation and pain control and has a urologist that he usually follows up with upon being discharged from the ED. Patient states that he has never had any kidney stones blocking his ureters but has always followed up with his urologist. Patient denies vomiting, fever, chills, hematuria, testicular pain, dysuria, urinary frequency and urgency, chest pain or shortness of breath or cough and diarrhea. MD Complaint: abdominal pain (RLQ pain), flank pain (Right flank pain), other (nausea and vomiting) -: Sudden, hour(s) (6) Location: RLQ, suprapubic, R flank Radiation: RLQ, R flank Migration to: no migration Severity scale (0 -10): 5 Quality: stabbing, aching, sharp Consistency: constant Improves With: nothing Worsens With: nothing Context: other (history of kidney stones, and appears similar) Associated Symptoms: denies other symptoms, nausea, anorexia. denies: vomiting, diarrhea, fever, chills, constipation, dysuria, hematemesis, hematochezia, melen a, hematuria, syncope, other - Related Data Previous Rx's Medication Instructions Recorded Last Taken Type Cefpodoxime Proxetil 100 mg PO Q12HR #20 tablet 10/19/16 Unknown Rx Ondansetron [Zofran Odt] 4 mg PO QID PRN #20 tab.rapdis 10/19/16 Unknown Rx oxyCODONE [Roxicodone] 5 mg PO Q6HR PRN #15 tablet 10/19/16 Unknown Rx Nitrofurantoin [place]/M-Cryst 100 mg PO Q12HR #14 capsule 12/14/16 Unknown Rx [Macrobid CAP] Ondansetron [Zofran Odt] 4 mg PO QID PRN #20 tab.rapdis 12/14/16 Unknown Rx oxyCODONE [Roxicodone] 5 mg PO Q6HR PRN #15 tablet 12/14/16 Unknown Rx Acetaminophen/Codeine [Tylenol 1 tab PO Q6H PRN #12 tab 12/25/18 Unknown Rx /Codeine # 3 tab] Sulfamethoxazole/Trimethoprim 1 each PO BID #20 tablet 12/25/18 Unknown Rx [Bactrim DS TAB] Chlorhexidine Gluconate [Hibiclens] 10 ml TP BID #240 liquid 04/14/20 Unknown Rx Mupirocin [Bactroban 2%] 15 applic TP TID #15 gm 04/14/20 Unknown Rx cephALEXin [Keflex] 500 mg PO Q6HR #40 capsule 04/14/20 Unknown Rx traMADoL [Ultram] 50 mg PO Q6HR PRN #20 tablet 04/14/20 Unknown Rx Ondansetron [Zofran Odt] 4 mg PO Q6HR PRN #20 tab.rapdis 11/21/20 Unknown Rx Tamsulosin [Flomax] 0.4 mg PO QDAY 5 Days #10 cap 11/21/20 Unknown Rx oxyCODONE /ACETAMINOPHEN [Percocet 1 tab PO Q6HR PRN #10 tablet 11/21/20 Unknown Rx 5/325 mg] Allergies Allergy/AdvReac Type Severity Reaction Status Date / Time Neuromuscular Blockers, Allergy Rash Verified 10/13/18 00:50 Steroidal [Steroidal Neuromuscular Blockers] NSAIDS (Non-Steroidal Allergy Hives Verified 10/13/18 00:50 Anti-Inflamma prednisone Allergy Unknown Verified 10/13/18 00:50 steriods Allergy Unknown Uncoded 11/06/16 01:40 ED Review of Systems ROS: Stated complaint: RT SIDE PAIN Other details as noted in HPI Constitutional: denies: chills, fever Eyes: denies: eye pain, eye discharge, vision change ENT: denies: ear pain, throat pain Respiratory: denies: cough, shortness of breath, wheezing Cardiovascular: denies: chest pain, palpitations Endocrine: no symptoms reported Gastrointestinal: abdominal pain (Right flank, right lower quadrant and suprapubic pain), nausea. denies: diarrhea Genitourinary: denies: urgency, dysuria Musculoskeletal: denies: back pain, joint swelling, arthralgia Skin: denies: rash, lesions Neurological: denies: headache, weakness, paresthesias Psychiatric: denies: anxiety, depression Hematological/Lymphatic: denies: easy bleeding, easy bruising ED Past Medical Hx - Past Medical History Previous Medical History?: Yes Hx Hypertension: Yes Hx Diabetes: Yes (PO and Insulin) Hx Kidney Stones: Yes - Surgical History Hx Cholecystectomy: Yes Additional Surgical History: Gallbladder removed. - Social History Smoking Status: Light Tobacco Smoker Substance Use Type: None - Medications Home Medications: Home Medications Medication Instructions Recorded Confirmed Last Taken Type Cefpodoxime Proxetil 100 mg PO Q12HR #20 tablet 10/19/16 Unknown Rx Ondansetron [Zofran Odt] 4 mg PO QID PRN #20 tab.rapdis 10/19/16 Unknown Rx oxyCODONE [Roxicodone] 5 mg PO Q6HR PRN #15 tablet 10/19/16 Unknown Rx Nitrofurantoin [place]/M-Cryst 100 mg PO Q12HR #14 capsule 12/14/16 Unknown Rx [Macrobid CAP] Ondansetron [Zofran Odt] 4 mg PO QID PRN #20 tab.rapdis 12/14/16 Unknown Rx oxyCODONE [Roxicodone] 5 mg PO Q6HR PRN #15 tablet 12/14/16 Unknown Rx Acetaminophen/Codeine [Tylenol 1 tab PO Q6H PRN #12 tab 12/25/18 Unknown Rx /Codeine # 3 tab] Sulfamethoxazole/Trimethoprim 1 each PO BID #20 tablet 12/25/18 Unknown Rx [Bactrim DS TAB] Chlorhexidine Gluconate [Hibiclens] 10 ml TP BID #240 liquid 04/14/20 Unknown Rx Mupirocin [Bactroban 2%] 15 applic TP TID #15 gm 04/14/20 Unknown Rx cephALEXin [Keflex] 500 mg PO Q6HR #40 capsule 04/14/20 Unknown Rx traMADoL [Ultram] 50 mg PO Q6HR PRN #20 tablet 04/14/20 Unknown Rx Ondansetron [Zofran Odt] 4 mg PO Q6HR PRN #20 tab.rapdis 11/21/20 Unknown Rx Tamsulosin [Flomax] 0.4 mg PO QDAY 5 Days #10 cap 11/21/20 Unknown Rx oxyCODONE /ACETAMINOPHEN [Percocet 1 tab PO Q6HR PRN #10 tablet 11/21/20 Unknown Rx 5/325 mg] ED Physical Exam - General Limitations: No Limitations General appearance: alert, in no apparent distress - Head Head exam: Present: atraumatic, normocephalic, normal inspection - Eye Eye exam: Present: normal appearance, PERRL, EOMI Pupils: Present: normal accommodation - ENT ENT exam: Present: normal exam, normal orophraynx, mucous membranes moist, TM's normal bilaterally, normal external ear exam - Neck Neck exam: Present: normal inspection, full ROM - Respiratory Respiratory exam: Present: normal lung sounds bilaterally. Absent: respiratory distress, wheezes, rales, rhonchi, chest wall tenderness, accessory muscle use, decreased breath sounds, prolonged expiratory - Cardiovascular Cardiovascular Exam: Present: normal rhythm, tachycardia, normal heart sounds. Absent: systolic murmur, diastolic murmur, rubs, gallop - GI/Abdominal GI/Abdominal exam: Present: soft, tenderness (Palpable right flank, right lower quadrant and suprapubic moderate tenderness), normal bowel sounds. Absent: guarding, rebound, hyperactive bowel sounds, hypoactive bowel sounds - Extremities Exam Extremities exam: Present: normal inspection, full ROM, normal capillary refill - Back Exam Back exam: Present: normal inspection, full ROM. Absent: tenderness, CVA tenderness (R), muscle spasm, paraspinal tenderness - Neurological Exam Neurological exam: Present: alert, oriented X3, CN II-XII intact, normal gait, reflexes normal - Psychiatric Psychiatric exam: Present: normal affect, normal mood - Skin Skin exam: Present: warm, dry, intact, normal color. Absent: rash ED Course Vital Signs 11/21/20 11/21/20 11/21/20 19:13 19:38 20:08 Temperature 98.2 F Pulse Rate 119 H Respiratory 18 18 18 Rate Blood Pressure 152/94 [Right] O2 Sat by Pulse 98 Oximetry 11/21/20 21:12 Temperature Pulse Rate Respiratory 18 Rate Blood Pressure [Right] O2 Sat by Pulse Oximetry ED Medical Decision Making - Lab Data Result diagrams: 11/21/20 19:35 11/21/20 19:35 - Medical Decision Making This is a 45-year-old male with a history of pad-qmtdctt-qmavrqhti diabetes, hypertension and chronic recurrent kidney stones who presents to the ED with complaint of acute onset persistent severe right flank pain that radiates to the right lower quadrant and suprapubic areas with nausea for the last 6 hours. Patient states that the symptoms are similar to what he has previously felt whenever he had recurrent kidney stones. Patient states that he has previously come to the ED for evaluation and pain control and has a urologist that he usually follows up with upon being discharged from the ED. Patient states that he has never had any kidney stones blocking his ureters but has always followed up with his urologist. In the ED, patient is alert and oriented x3 and is not in any distress, afebrile but tachycardic in triage and appears to be in significant pain. Patient was treated for pain in the ED and also received normal saline 1 L IV bolus x1 and also given antiemetics. Lab test results were reviewed and showed acute mild hyponatremia 134 mmol/L, and hyperglycemia of 280 mg/dL. The rest of the lab test results including urinalysis was unremarkable. Patient however declined any imaging tests, preferring to follow-up with his urologist in the next 48 hours. Patient stated that his urologist had previously advised him not to have any more imaging tests for fear of exposure to excess radiation, and advised him to always come to the ED for pain control and follow-up with him at his office the next day for further evaluation since he has had multiple recurrent kidney stones followed by multiple imaging tests although in this hospital he has only had 1 renal ultrasound which was performed on 9 months ago and which only confirmed bilateral nephrolithiasis. On reevaluation, patient's pain is well controlled medications. Patient was therefore discharged home on pain medications and given Flomax prescription as well as antiemetics and advised to follow-up with his urologist in 2 days as previously scheduled. Patient was however advised return to the ED immediately if symptoms get worse. - Differential Diagnosis Kidney stones; UTI; Appendicitis; SBO; Colitis Critical care attestation.: If time is entered above; I have spent that time in minutes in the direct care of this critically ill patient, excluding procedure time. ED Disposition Clinical Impression: Acute abdominal pain in right flank, History of renal calculi Disposition: TO HOME OR SELFCARE Is pt being admited?: No Does the pt Need Aspirin: No Condition: Stable Instructions: Kidney Stones, [id number], Flank Pain, Adult, Yltn-us-Zkkm, Abdominal Pain, Adult, Wwtg-ce-Rmog Additional Instructions: All lab test results were reviewed and are all nonactionable except for hypergl ycemia of 280 mg/dl, and mild hyponatremia 134 mmol/L. Urinalysis is unremarkable. Therefore take medications as needed for pain, drink plenty of fluids and follow-up with your urologist in 2 days for further evaluation. Return to the ED immediately if symptoms get worse. Prescriptions: Tamsulosin [Flomax] 0.4 mg PO QDAY 5 Days #10 cap oxyCODONE /ACETAMINOPHEN [Percocet 5/325 mg] 1 tab PO Q6HR PRN #10 tablet PRN Reason: Pain Ondansetron [Zofran Odt] 4 mg PO Q6HR PRN #20 tab.rapdis PRN Reason: Nausea Referrals: DANDY GRANDE MD [Staff Physician] - 3-5 Days Time of Disposition: 21:51 Print Language: VIETNAMESE
[2020-11-21 21:57] LABS: Total Cells Counted 100
[2020-11-21 21:58] LABS: Anisocytosis RARE
== END 2020-11-21 23:03 | disposition home or self-care (01) ==
LOC: ED 18:26
DX: R10.31 Right lower quadrant pain (principal); I10 Essential (primary) hypertension; E11.9 Type 2 diabetes mellitus without complications; F17.200 Nicotine dependence, unspecified, uncomplicated; Z87.442 Personal history of urinary calculi; Z90.49 Acquired absence of other specified parts of digestive tract; Z88.8 Allergy status to other drugs, medicaments and biological substances; Z79.899 Other long term (current) drug therapy
CPT/HCPCS: 36415; 80053; 81001; 85007; 85025; 96361; 96374; 96375; 99283; J2270; J2405; J2765; J3010; J7030

== ENCOUNTER 2021-05-06 22:44 | Emergency (ER) | payer OTHER ==
[2021-05-07 00:02] LABS: Basophils % (Auto) 0.3 % (0.0-1.8); Eosinophils # (Auto) 0.4 K/mm3 (0.0-0.4); Eosinophils % (Auto) 4.4 % (0.0-4.3); Hemoglobin 15.1 gm/dl (11.8-15.2); Lymphocytes # (Auto) 2.9 K/mm3 (1.2-5.4); Lymphocytes % (Auto) 32.5 % (13.4-35.0); Mean Corpuscular HGB Conc 35 % (32-34); Mean Corpuscular Volume 89 fl (84-94); Monocytes # (Auto) 0.8 K/mm3 (0.0-0.8); Monocytes % (Auto) 8.8 % (0.0-7.3); Platelet Count 293 K/mm3 (140-440); Red Blood Count 4.84 M/mm3 (3.65-5.03); Red Cell Distribution Width 13.7 % (13.2-15.2)
[2021-05-07 00:24] LABS: Alanine Aminotransferase 49 units/L (7-56); BUN/Creatinine Ratio 18; Blood Urea Nitrogen 16 mg/dL (9-20); Calcium 9.3 mg/dL (8.4-10.2); Hemolysis Index 16
[2021-05-07 00:59] LABS: Bilirubin,Urine NEG (Negative); Blood,Urine NEG (Negative); Calcium Oxalate Crystals,Urine 2+; Color,Urine Yellow (Yellow); Mucus,Urine FEW /HPF; Protein,Urine <15 mg/dL mg/dL (Negative); Urobilinogen,Urine < 2.0 mg/dL (<2.0)
[2021-05-07] MEDS ORDERED: MORPHINE 4 MG/1 ML INJ IV ONE (01:01)
[2021-05-07] MEDS ORDERED: ONDANSETRON 4 MG/2 ML INJ IV ONE ×2 (01:01→02:46)
[2021-05-07] MEDS ORDERED: SODIUM CHLORIDE 0.9% 1000 ML 1,000 ML IV ONE (01:02)
[2021-05-07] MEDS ORDERED: MORPHINE 2 MG/1 ML INJ IV ONE (02:46)
--- NOTE | 2021-05-07 03:25 | Emergency Department Report ---
ED Abdominal Pain HPI - General Chief Complaint: Abdominal Pain Stated Complaint: POSS KIDNEY STONES Time Seen by Provider: 05/06/21 23:43 Source: patient Mode of arrival: Ambulatory Limitations: No Limitations - History of Present Illness Initial Comments: Patient is a 45-year-old male with a history of kidney stones who presents with left flank pain radiating to suprapubic x2 days. Patient states he is followed by urology symptoms are 5/10 at this time. Patient denies hematuria there is some frequency and urgency however. There is no fever no chills no nausea or vomiting. Patient states NSAID allergic generally takes morphine when he has a kidney stone. Current symptoms are relieved by nothing tried. MD Complaint: flank pain Severity scale (0 -10): 5 - Related Data Previous Rx's Medication Instructions Recorded Last Taken Type Cefpodoxime Proxetil 100 mg PO Q12HR #20 tablet 10/19/16 Unknown Rx Ondansetron [Zofran Odt] 4 mg PO QID PRN #20 tab.rapdis 10/19/16 Unknown Rx oxyCODONE [Roxicodone] 5 mg PO Q6HR PRN #15 tablet 10/19/16 Unknown Rx Nitrofurantoin [place]/M-Cryst 100 mg PO Q12HR #14 capsule 12/14/16 Unknown Rx [Macrobid CAP] Ondansetron [Zofran Odt] 4 mg PO QID PRN #20 tab.rapdis 12/14/16 Unknown Rx oxyCODONE [Roxicodone] 5 mg PO Q6HR PRN #15 tablet 12/14/16 Unknown Rx Acetaminophen/Codeine [Tylenol 1 tab PO Q6H PRN #12 tab 12/25/18 Unknown Rx /Codeine # 3 tab] Sulfamethoxazole/Trimethoprim 1 each PO BID #20 tablet 12/25/18 Unknown Rx [Bactrim DS TAB] Chlorhexidine Gluconate [Hibiclens] 10 ml TP BID #240 liquid 04/14/20 Unknown Rx Mupirocin [Bactroban 2%] 15 applic TP TID #15 gm 04/14/20 Unknown Rx cephALEXin [Keflex] 500 mg PO Q6HR #40 capsule 04/14/20 Unknown Rx traMADoL [Ultram] 50 mg PO Q6HR PRN #20 tablet 04/14/20 Unknown Rx Ondansetron [Zofran Odt] 4 mg PO Q6HR PRN #20 tab.rapdis 11/21/20 Unknown Rx Tamsulosin [Flomax] 0.4 mg PO QDAY 5 Days #10 cap 11/21/20 Unknown Rx oxyCODONE /ACETAMINOPHEN [Percocet 1 tab PO Q6HR PRN #10 tablet 11/21/20 Unknown Rx 5/325 mg] HYDROcodone/APAP 5-325 [[place] 1 each PO Q6HR PRN #12 tablet 05/07/21 Unknown Rx 5-325 mg TAB] Ondansetron [Zofran Odt] 4 mg PO Q8HR PRN #12 tab.rapdis 05/07/21 Unknown Rx Allergies Allergy/AdvReac Type Severity Reaction Status Date / Time Neuromuscular Blockers, Allergy Rash Verified 10/13/18 00:50 Steroidal [Steroidal Neuromuscular Blockers] NSAIDS (Non-Steroidal Allergy Hives Verified 10/13/18 00:50 Anti-Inflamma prednisone Allergy Unknown Verified 10/13/18 00:50 steriods Allergy Unknown Uncoded 11/06/16 01:40 ED Review of Systems ROS: Stated complaint: POSS KIDNEY STONES Other details as noted in HPI Constitutional: denies: chills, fever Eyes: denies: eye pain, eye discharge, vision change ENT: denies: ear pain, throat pain Respiratory: denies: cough, shortness of breath, wheezing Cardiovascular: denies: chest pain, palpitations Endocrine: no symptoms reported Gastrointestinal: abdominal pain (left flank pain), nausea. denies: vomiting, diarrhea, constipation, hematemesis, melena, hematochezia Genitourinary: urgency, dysuria, frequency. denies: hematuria, discharge, testicular pain, testicular mass Musculoskeletal: back pain (left flank ). denies: joint swelling, arthralgia Skin: denies: rash, lesions Neurological: denies: headache, weakness, paresthesias, vertigo Psychiatric: denies: anxiety, depression Hematological/Lymphatic: denies: easy bleeding, easy bruising ED Past Medical Hx - Past Medical History Previous Medical History?: Yes Hx Hypertension: Yes Hx Diabetes: Yes (PO and Insulin) Hx Kidney Stones: Yes - Surgical History Past Surgical History?: Yes Hx Cholecystectomy: Yes Additional Surgical History: Gallbladder removed. - Social History Smoking Status: Light Tobacco Smoker Substance Use Type: None - Medications Home Medications: Home Medications Medication Instructions Recorded Confirmed Last Taken Type Cefpodoxime Proxetil 100 mg PO Q12HR #20 tablet 10/19/16 Unknown Rx Ondansetron [Zofran Odt] 4 mg PO QID PRN #20 tab.rapdis 10/19/16 Unknown Rx oxyCODONE [Roxicodone] 5 mg PO Q6HR PRN #15 tablet 10/19/16 Unknown Rx Nitrofurantoin [place]/M-Cryst 100 mg PO Q12HR #14 capsule 12/14/16 Unknown Rx [Macrobid CAP] Ondansetron [Zofran Odt] 4 mg PO QID PRN #20 tab.rapdis 12/14/16 Unknown Rx oxyCODONE [Roxicodone] 5 mg PO Q6HR PRN #15 tablet 12/14/16 Unknown Rx Acetaminophen/Codeine [Tylenol 1 tab PO Q6H PRN #12 tab 12/25/18 Unknown Rx /Codeine # 3 tab] Sulfamethoxazole/Trimethoprim 1 each PO BID #20 tablet 12/25/18 Unknown Rx [Bactrim DS TAB] Chlorhexidine Gluconate [Hibiclens] 10 ml TP BID #240 liquid 04/14/20 Unknown Rx Mupirocin [Bactroban 2%] 15 applic TP TID #15 gm 04/14/20 Unknown Rx cephALEXin [Keflex] 500 mg PO Q6HR #40 capsule 04/14/20 Unknown Rx traMADoL [Ultram] 50 mg PO Q6HR PRN #20 tablet 04/14/20 Unknown Rx Ondansetron [Zofran Odt] 4 mg PO Q6HR PRN #20 tab.rapdis 11/21/20 Unknown Rx Tamsulosin [Flomax] 0.4 mg PO QDAY 5 Days #10 cap 11/21/20 Unknown Rx oxyCODONE /ACETAMINOPHEN [Percocet 1 tab PO Q6HR PRN #10 tablet 11/21/20 Unknown Rx 5/325 mg] HYDROcodone/APAP 5-325 [[place] 1 each PO Q6HR PRN #12 tablet 05/07/21 Unknown Rx 5-325 mg TAB] Ondansetron [Zofran Odt] 4 mg PO Q8HR PRN #12 tab.rapdis 05/07/21 Unknown Rx ED Physical Exam - General Limitations: No Limitations General appearance: alert, in no apparent distress - Head Head exam: Present: atraumatic, normocephalic - Eye Eye exam: Present: normal appearance, EOMI Pupils: Present: normal accommodation - ENT ENT exam: Present: mucous membranes moist - Neck Neck exam: Present: normal inspection, full ROM. Absent: tenderness - Respiratory Respiratory exam: Present: normal lung sounds bilaterally. Absent: respiratory distress, wheezes - Cardiovascular Cardiovascular Exam: Present: regular rate, normal rhythm, normal heart sounds. Absent: systolic murmur, diastolic murmur, rubs, gallop - GI/Abdominal GI/Abdominal exam: Present: soft, normal bowel sounds. Absent: distended, tenderness, guarding, rebound, rigid, bruit, hernia - Rectal Rectal exam: Present: deferred - Extremities Exam Extremities exam: Present: normal inspection, full ROM. Absent: tenderness - Back Exam Back exam: Present: normal inspection, full ROM, CVA tenderness (L). Absent: CVA tenderness (R), vertebral tenderness - Neurological Exam Neurological exam: Present: alert, oriented X3, CN II-XII intact, normal gait - Psychiatric Psychiatric exam: Present: normal affect, normal mood - Skin Skin exam: Present: warm, dry, intact, normal color. Absent: rash ED Course Vital Signs 05/06/21 23:29 Temperature 98.2 F Pulse Rate 111 H Respiratory 18 Rate Blood Pressure 178/106 O2 Sat by Pulse 96 Oximetry ED Medical Decision Making - Lab Data Result diagrams: 05/06/21 23:48 05/06/21 23:48 Labs 05/06/21 05/06/21 05/07/21 23:48 23:48 00:03 WBC 8.9 RBC 4.84 Hgb 15.1 Hct 43.0 MCV 89 MCH 31 MCHC 35 H RDW 13.7 Plt Count 293 Lymph % (Auto) 32.5 [place] % (Auto) 8.8 H Eos % (Auto) 4.4 H Baso % (Auto) 0.3 Lymph # (Auto) 2.9 [place] # (Auto) 0.8 Eos # (Auto) 0.4 Baso # (Auto) 0.0 Seg Neutrophils % 54.0 Seg Neutrophils # 4.8 Sodium 138 Potassium 4.2 Chloride 100.2 Carbon Dioxide 23 Anion Gap 19 BUN 16 Creatinine 0.9 Estimated GFR > 60 BUN/Creatinine Ratio 18 Glucose 217 H Calcium 9.3 Total Bilirubin 0.40 AST 27 ALT 49 Alkaline Phosphatase 66 Total Protein 7.7 Albumin 4.0 Albumin/Globulin Ratio 1.1 Urine Color Yellow Urine Turbidity Turbid Urine pH 5.0 Ur Specific [place] 1.022 Urine Protein <15 mg/dl Urine Glucose (UA) >=500 Urine Ketones Neg Urine Blood Neg Urine Nitrite Neg Urine Bilirubin Neg Urine Urobilinogen < 2.0 Ur Leukocyte Esterase Sm Urine WBC (Auto) 7.0 H Urine RBC (Auto) 19.0 U Epithel Cells (Auto) 8.0 Calcium Oxalate Crystal 2+ Uric Acid Crystals 3+ Urine Mucus Few - Radiology Data pt declined - Medical Decision Making Labs noted urine with mild WBCs mild leukocytes, patient declined CT abdomen pelvis , patient is voiding states better and pain is improved after medications given in ED. Plan DC to home diagnosis history of renal stones flank pain. P atient will take medication as prescribed, and follow-up with urology as scheduled. Patient verbalized agreement and understanding with discharge plan patient DC'd to home in stable condition at this time Critical care attestation.: If time is entered above; I have spent that time in minutes in the direct care of this critically ill patient, excluding procedure time. ED Disposition Clinical Impression: Flank pain, UTI (urinary tract infection) Disposition: 01 HOME / SELF CARE / HOMELESS Is pt being admited?: No Does the pt Need Aspirin: No Condition: Stable Instructions: Flank Pain, Adult, [id number], Urinary Tract Infection, Adult Additional Instructions: Take medications as prescribed, follow-up with your urology in 2 to 3 days as scheduled. Return to emergency should symptoms worsen Prescriptions: HYDROcodone/APAP 5-325 [[place] 5-325 mg TAB] 1 each PO Q6HR PRN #12 tablet PRN Reason: Pain Ondansetron [Zofran Odt] 4 mg PO Q8HR PRN #12 tab.rapdis PRN Reason: Nausea Referrals: GABRIELA PATTERSON MD [Staff Physician] - 3-5 Days Forms: Work/School Release Form(ED) Time of Disposition: 03:33
[2021-05-07 04:06] VITALS: BP 158/90
== END 2021-05-07 03:41 | disposition home or self-care (01) ==
LOC: ED 22:44
DX: R10.9 Unspecified abdominal pain (principal); N39.0 Urinary tract infection, site not specified; I10 Essential (primary) hypertension; Z90.49 Acquired absence of other specified parts of digestive tract; E11.8 Type 2 diabetes mellitus with unspecified complications; F17.210 Nicotine dependence, cigarettes, uncomplicated
CPT/HCPCS: 36415; 80053; 81001; 85025; 96361; 96374; 96375; 96376; 99283; J2270; J2405; J7030; Q0162

== ENCOUNTER 2021-09-23 20:26 | Emergency (ER) | payer SELFPAY ==
[2021-09-24] MEDS ORDERED: SODIUM CHLORIDE 0.9% 1000 ML 1,000 ML IV ONE (00:11)
[2021-09-24] MEDS ORDERED: MORPHINE 4 MG/1 ML INJ IV ONE (00:12)
[2021-09-24] MEDS ORDERED: ONDANSETRON 4 MG/2 ML INJ IV ONE (00:15)
[2021-09-24] MEDS ORDERED: ONDANSETRON 4 MG/2 ML INJ ONE (00:16)
[2021-09-24] MEDS ORDERED: MORPHINE 4 MG/1 ML INJ ONE (00:16)
[2021-09-24 00:41] VITALS: BP 142/93
[2021-09-24 00:58] LABS: Bilirubin,Urine NEG (Negative); Blood,Urine SM (Negative); Color,Urine Yellow (Yellow); Mucus,Urine FEW /HPF; Protein,Urine <15 mg/dL mg/dL (Negative); Urobilinogen,Urine < 2.0 mg/dL (<2.0)
[2021-09-24 01:12] LABS: Basophils # (Auto) 0.1 K/mm3 (0.0-0.1); Basophils % (Auto) 1.4 % (0.0-1.8); Eosinophils # (Auto) 0.5 K/mm3 (0.0-0.4); Eosinophils % (Auto) 4.9 % (0.0-4.3); Hematocrit 48.4 % (35.5-45.6); Hemoglobin 16.3 gm/dl (11.8-15.2); Lymphocytes # (Auto) 2.4 K/mm3 (1.2-5.4); Lymphocytes % (Auto) 23.8 % (13.4-35.0); Mean Corpuscular HGB Conc 34 % (32-34); Mean Corpuscular Volume 90 fl (84-94); Monocytes # (Auto) 0.7 K/mm3 (0.0-0.8); Monocytes % (Auto) 7.1 % (0.0-7.3); Platelet Count 306 K/mm3 (140-440); Red Blood Count 5.39 M/mm3 (3.65-5.03); Red Cell Distribution Width 13.2 % (13.2-15.2)
[2021-09-24 01:40] LABS: Alanine Aminotransferase 64 units/L (7-56); Albumin 4.3 g/dL (3.9-5); BUN/Creatinine Ratio 15; Blood Urea Nitrogen 12 mg/dL (9-20); Calcium 9.3 mg/dL (8.4-10.2); Hemolysis Index 45
== END 2021-09-24 01:33 | disposition left against medical advice (07) ==
LOC: ED 20:26
DX: R10.9 Unspecified abdominal pain (principal)
CPT/HCPCS: 36415; 80053; 81001; 85025; 96361; 96374; 96375; 99283; J2270; J2405; J7030; Q0162